=== PATIENT | male | born 1955 | race Caucasian/White ===

== ENCOUNTER → 2022-05-26 13:34 | Outpatient (REF) | payer MEDICARE, SELFPAY ==
--- NOTE | 2022-05-26 13:51 | CA_ITS ---
Transthoracic Echocardiogram Patient (Last, First, Middle): Ramsey Freeman, Gender: Male Date of : 1955 Age: 66 Procedure Date: 05/26/2022 Procedure Type: Transthoracic Echocardiogram Location: OP Height: 175.26 cm Weight: 81.65 kg BSA: 1.98 m2 Heart Rate: 66 bpm BP: 120 / 72 mmHg Neon Glass Blower: SB Referring MD: Jose Spangler MD Symptoms: RT CARDIAC VENTRICULAR DILATION Study Quality: Adequate w contrast ECG Rhythm: Sinus Conclusions: - The left ventricular systolic function is normal. The visually estimated ejection fraction is between 55-60%. - Knnf-qu-sjkbwere increase in right ventricular size. - No obvious valvular pathology seen on this study. Findings Procedure Information Contrast agent, definity, is being given per protocol without apparent complications. Left Ventricle Normal left ventricular cavity size. There is normal left ventricular wall thickness. The left ventricular systolic function is normal. The visually estimated ejection fraction is between 55-60%. There is no evidence of regional wall motion abnormalities. Vwom-yz-wifaiikw focal hypertrophy of the basal septum. Possible grade 2 diastolic dysfunction, but does not satisfy all parameters. Right Ventricle There is normal right ventricular systolic function. Kqvd-ku-flpknwyr increase in right ventricular size; RV basal diameter 4.5cm. Atria Both atria are normal in size. Aortic Valve There is a normal trileaflet aortic valve. There is mild calcification of the aortic valve. There is no aortic valve stenosis. There is trace (trivial) aortic valve regurgitation. Mitral Valve The mitral valve appears normal. There is no mitral valve regurgitation. There is no mitral valve stenosis. Pulmonic Valve The pulmonic valve is likely normal. Tricuspid Valve There is mild tricuspid valve regurgitation. Top-normal pulmonary artery systolic pressure. Great Vessels The aortic annulus, sinuses of valsalva, and asc aorta are normal in size. Venous The inferior vena cava is normal in size and collapses greater than 50% with inspiration. Pericardium/Pleural There is no evidence of pericardial effusion. Prior Study Comparison No prior study available for comparison. Recommendations, Care & Conclusions No obvious valvular pathology seen on this study. Measurements 2D Linear Measurements IVSd: 0.46 0.6-0.9/0.6-1.0 cm LVIDd: 5.55 3.9-5.3/4.2-5.9 cm LVIDd Index: 2.80 2.4-3.2/2.2-3.1 cm/m2 LVIDs: 3.57 2.0-3.6 cm LVPWd: 0.61 0.7-1.1 cm LA Diam: 4.30 2.7-3.8/3.0-4.0 cm LAIDs Index: 2.17 1.5-2.3 cm/m2 LV Mass: 123.52 67-162/88-224 g LV Mass Index: 62.38 43-95/49-115 g/m2 LVOT Diam: 2.50 3.0+(-)1.3 cm 2D Systolic Function EF 4C: 71.40 >55% EF 2C: 51.80 >55% EF BiP: 63.70 >55% Mitral Valve MV Pk E: 1.05 MV PK A: 0.88 MV Decel Time: 206.00 E/A: 1.20 E'Lateral: 8.49 E'Medial: 5.66 E/E' Med: 18.60 E/E' Lat: 12.40 PHT: 60.00 MVA PHT: 3.67 Decel Kenton: 5.12 Aortic Valve AoV Pk Gigi: 1.38 AoV Pk Grad: 8.00 MARLO: 4.90 LVOT LVOT Pk Gigi: 1.40 LVOT Mn Gigi: 0.97 LVOT VTI: 0.30 LVOT Pk Grad: 8.00 LVOT Mn Grad: 4.00 LVOT Diam: 2.50 LVOT Area: 4.91 Diastolic Function MV Pk E: 1.05 MV Pk A: 0.88 E/A: 1.20 E'Medial: 5.66 E/E' Med: 18.60 E' Laterial: 8.49 E/E' Lat: 12.40 Right Ventricle TAPSE (mm): 24.40 TVS' Gigi: 15.50 Tricuspid Valve TR Pk Gigi: 2.81 TR Pk Grad: 32.00 RA Press: 3.00 RVSP: 35.00 Great Vessels Aorta Sinus of Valsalva: 3.70 2.0-3.5 cm Ao Asc: 3.50 2.1-3.4 cm Pulmonary Veins Pulm Vein S/D 1.80 Pulmonary Valve PV Pk Gigi: 0.83 Peak PV Grad: 3.00 Updated in Other Vendor System with Status of Final Abdiel Boston MD electronically signed on 05/26/2022 3:58:51 PM with status of Final
== END ==
LOC: HO.CARD 13:34
PROVIDERS: PCP Internal Medicine; Visit Provider Internal Medicine
DX: I51.7 Cardiomegaly (principal)
CPT/HCPCS: 93306; Q9957

== ENCOUNTER → 2023-04-21 08:12 | Outpatient (REF) | payer MEDICARE, SELFPAY ==
--- NOTE | 2023-04-21 08:16 | CA_ITS ---
Acquisition Time: 2023-04-21 08:24:51 Total Exercise Time: 00:09:54 Test Indications: CP Medications: AMLODIPINE ELIQUIS HYDROXYZINE ALBUTEROL Protocol: KADE Max HR: 146 BPM 95% of Pred: 153 BPM Max BP: 188/070 mmHG Max Work Load: 11.5 METS Exercise stress test exercise 9 min 54 sec of Kade protocol 95% MPHR, without anginal symptoms, with isolated PVCs, with normotensive response to exercise, without EKG changes. Test reviewed with Dr. Rowe Referred By: Jose Spangler Overread By: Olivia Schofield
== END ==
LOC: HO.CARD 08:12
PROVIDERS: PCP Internal Medicine; Visit Provider Internal Medicine
DX: R07.89 Other chest pain (principal)
CPT/HCPCS: 93017

== ENCOUNTER → 2023-04-21 08:16 | Outpatient (BNV) | payer MEDICARE, SELFPAY | PROVIDERS: PCP Internal Medicine; Visit Provider Nurse Practitioner | DX: R07.9 Chest pain, unspecified (principal) | CPT/HCPCS: 93016; 93018 ==

== ENCOUNTER 2024-06-01 11:11 | Outpatient (REF) | payer MEDICARE, SELFPAY ==
[2024-06-01 13:38] LABS: Mean Corpuscular HGB Conc 34.1 g/dl (31.0-36.0); Mean Corpuscular Hemoglobin 30.2 pg (27.0-33.0); Mean Corpuscular Volume 88.5 fL (80.0-98.0); Mean Platelet Volume 9.9 fL (9.4-12.4); Platelet Count 252 X10*3/uL (160-400); Red Blood Count 4.97 X10*6/uL (4.60-5.80); White Blood Count 4.6 X10*3/uL (4.8-10.8)
[2024-06-01 13:43] LABS: Estimated Average Glucose 111 mg/dL; Hemoglobin A1C 142.5642 umol/L; Hemoglobin A1c % 5.5 % (<6.0); Total Hemoglobin (HGBA1C) 3890.7739 umol/L
[2024-06-01 14:03] LABS: Alanine Aminotransferase 27 U/L (0-40); Albumin Level 4.7 g/dL (3.5-5.0); Alkaline Phosphatase 90 U/L (39-117); Anion Gap 12 (12-20); Aspartate Amino Transferase 26 U/L (5-37); Bilirubin Total 0.5 mg/dL (0.0-1.0); Blood Urea Nitrogen 22 mg/dL (9-16); C Reactive Protein < 0.10 mg/dL (< or = 0.50); Calcium 9.4 mg/dL (8.4-10.2); Carbon Dioxide 28 mmol/L (22-29); Chloride 104 mmol/L (96-108); Cholesterol 192 mg/dL (<200); Estimated Glomerular Filt Rate > 60; Glucose Random 105 mg/dL (60-115); HDL Cholesterol 72 mg/dL (>40); LDL Cholesterol Calculated 107 mg/dL (<100); Potassium 4.7 mmol/L (3.3-5.1); Sodium 139 mmol/L (135-145); Total Protein 7.6 g/dL (6.5-8.0); Triglycerides 69 mg/dL (<150); Uric Acid 4.8 mg/dL (3.4-7.0)
[2024-06-01 14:08] LABS: Thyroid Stimulating Hormone 0.94 uIU/mL (0.32-4.0); Vitamin D 25-OH Total 62.7 ng/mL (>30)
[2024-06-01 14:18] LABS: Erythrocyte Sedimentation Rate 4 MM/HR (0-15)
[2024-06-01 14:35] LABS: Prostate Specific Antigen 3.51 ng/mL (<0.05-4.0); Vitamin B12 1035 pg/mL (200-900)
[2024-06-07 14:13] LABS: Testosterone, Total 560 ng/dL (250-1100)
== END 2024-06-01 11:12 | disposition home or self-care (01) ==
LOC: HO.HMGCLDS 11:11
PROVIDERS: PCP Internal Medicine; Visit Provider Internal Medicine
DX: I10 Essential (primary) hypertension (principal); R73.01 Impaired fasting glucose; M25.50 Pain in unspecified joint; R53.83 Other fatigue; Z12.5 Encounter for screening for malignant neoplasm of prostate
CPT/HCPCS: 36415; 80053; 80061; 82306; 82607; 83036; 84153; 84403; 84443; 84550; 85027; 85652; 86140

== ENCOUNTER 2024-06-03 09:17 | Outpatient (REF) | payer MEDICARE, SELFPAY ==
[2024-06-06 21:04] LABS: Homocysteine 7.5 umol/L (<11.4)
== END 2024-06-03 09:18 | disposition home or self-care (01) ==
LOC: HO.LAB 09:17
PROVIDERS: PCP Internal Medicine; Visit Provider Internal Medicine
DX: I10 Essential (primary) hypertension (principal)
CPT/HCPCS: 36415; 83090

== ENCOUNTER 2024-08-26 13:22 | Outpatient (REF) | payer MEDICARE, SELFPAY ==
--- NOTE | ~2024-08-26 | XR_ITS ---
CLINICAL HISTORY: LOW BACK PAIN 3 views lumbar spine Comparison: None Findings: Normal vertebral body alignment. No acute fractures or dislocation. There is mild lumbar spine levoscoliosis. There is mild osteopenia. There are small lumbar spine osteophytes. There is mild sclerosis of the lower lumbar spine facets. IMPRESSION: Multilevel spondylosis no acute fractures This document has been electronically signed by: Nelson Tapia MD on 08/27/2024 09:01:29
--- OUTSIDE RECORDS SUMMARY | 2024-08-26 14:56 | XMS_ITS | Continuity of Care Document ---
Author Organization MD - [facility], [facility] Address [address] [place] [address] Assessment No assessment recorded. Plan of Treatment Reminders Order Date Submit Date Provider Last Modified By Organization Details Last Modified Time Details Appointments FOLLOW UP 2024 09:00A M ADRIANNA MELGOZA Not available Not available Not available FOLLOW UP 2024 10:00A M ADRIANNA MELGOZA Not available Not available Not available Lab None recorded. Referral None recorded. Procedures None recorded. Surgeries None recorded. Imaging XR, lumbosacr al spine, 2 or 3 view 2024 025 [email or web address] [facility] Central Scheduling, [address] [facility], [place], [address], 08/26/2024 09:35:21 Medication Orders None recorded. Patient TargetsNo targets recorded. Patient InstructionsNo instructions recorded. Reason for Referral None Reported. Problems Name Problem SNOMED Code Status Onset Date Resolution Date Notes Provider Name and Address Organization Details Recorded Time Gastroes ophageal reflux disease 639056283 Active 2019 Not Available [facility] 3 14:41:37 Exposure to mold Active 2019 Not Available [facility] 3 14:41:37 Right cardiac ventricu lar dilatati on 258410735 Active 2021 Not Available [facility] 3 14:41:37 Right ventricu lar abnormal ity 813774274 Active 2021 Not Available [facility] 3 14:41:37 Asthma 650994080 Active 2021 Not Available [facility] 3 14:41:37 Obstruct brianna sleep apnea syndrome 60002548 Active 2022 Not Available [facility] 3 14:41:37 Gastroes ophageal reflux disease without esophagi tis 715479698 Active 2022 Jose Spangler, DO [address] [place] [address], [phone], [facility] 3 16:48:40 Atypical chest pain 849658524 Active 2022 Jose Spangler, DO [address] [place] [address], [phone], [facility] 3 16:52:13 Acute bronchit is 58254599 Active 2023 ADRIANNA MELGOZA [address] [place] [address], [phone], [facility] 4 16:45:48 Multiple joint pain 66232403 Active 2023 Jose Spangler, DO [address] [place] [address], [id number], [facility] 4 10:25:41 Fatigue 46751190 Active 2023 Jose Spangler, DO [address] [place] [address], [phone], [facility] 4 10:27:08 Chronic cough 08316762 Active 2024 ADRIANNA MELGOZA [address] [place] [address], [address], [facility] 5 11:53:31 Lumbago with sciatica 188184445 Active 2024 ADRIANNA MELGOZA [address] [place] [address], [phone], [facility] 5 12:14:35 Cervical radiculo mer 91468286 Active 2024 ADRIANNA MELGOZA [address] [place] [address], [phone], [facility] 5 12:16:20 Acute low back pain 933245522 Active 2024 ADRIANNA MELGOZA [address] [place], [address], [facility] 5 09:12:49 Essliu l hyperten vikram 40571363 Active 2017 Not Available [facility] 3 14:41:37 Hypogona dism 64594656 Active 2017 Not Available [facility] 3 14:41:37 Asthma 432587356 Completed 201710/28/2017 Jose Spangler DO [address] [place], [address], [facility] 2 16:42:44 Impaired fasting glycemia 549544787 Active 2017 Not Available [facility] 3 14:41:37 Anxiety 14761526 Active 2017 Not Available [facility] 3 14:41:37 Problem Notes None recorded. Medical Equipment None Reported. Allergies Allergen ID Allergen Name Allergen Category Reaction Reaction Severity Criticality Documentation Date Start Date Code Code System Note Provider Name and Address Organization Details Recorded Time 1354 Substance with sulfonami de structure and antibacte rial mechanism of action (substanc e) medicatio n Not available Not available Not available 10/28/2017 34808 [id number] [facility]ED [facility] 8 08:27:11 Medications Name Sig Start Date Stop Date Status Note LastModified by Organization Details LastModified Time amoxicillin 500 mg capsule 05/12 completed Not Available Not Available Not Available trazodone 50 mg tablet TAKE 2 TABLETS BY MOUTH NIGHTLY 05/28 completed Not Available Not Available Not Available amlodipine 2.5 mg tablet Take 2 tablet(s) every day by oral route. 05/12 completed Not Available Not Available Not Available amlodipine 5 mg tablet TAKE 2 TABLETS BY MOUTH ONCE DAILY 05/28 completed Not Available Not Available Not Available tramadol 50 mg tablet take 1-2 tid prn back pain 05/12 completed Not Available Not Available Not Available lorazepam 0.5 mg tablet TAKE 1 TABLET BY MOUTH EVERY 8 HOURS NEEDED FOR ANXIETY (FOR PANIC ATTACKS) FOR UP TO 10 DAYS 05/12 completed Not Available Not Available Not Available trazodone 100 mg tablet Take 1 tablet every day by oral route for 90 days. active Not Available Not Available No t Available amlodipine 10 mg tablet Take 1 tablet every day by oral route for 90 days. active Not Available Not Available No t Available benzonatate 100 mg capsule TAKE 1 CAPSULE BY MOUTH THREE TIMES A DAY NEEDED FOR 30 DAYS 08/26 completed Not Available Not Available Not Available losartan 25 mg tablet take 1 tablet by mouth once a day 07/12 completed Not Available Not Available Not Available hydrochloro thiazide 12.5 mg capsule 1 po qd 10/27 completed Not Available Not Available Not Available fluoxetine 10 mg capsule TAKE 2 CAPSULES BY MOUTH DAILY 05/12 completed Not Available Not Available Not Available montelukast 10 mg tablet TAKE 1 TABLET BY MOUTH ONCE DAILY 05/12 completed Not Available Not Available Not Available hydroxyzine HCl 25 mg tablet Take 2 tablets twice a day by oral route for 30 days. active Not Available Not Available No t Available codeine 10 mg-guaifene sin 100 mg/5 mL oral liquid TAKE 10 ML BY MOUTH EVERY 4 HOURS NEEDED FOR 7 DAYS 07/29 completed Not Available Not Available Not Available lorazepam 1 mg tablet take 1 tablet three times a day if needed 10/27 completed Not Available Not Available Not Available zolpidem 10 mg tablet TAKE 1 TABLET BY MOUTH NIGHTLY NEEDED FOR SLEEP 05/12 completed Not Available Not Available Not Available methylpredn isolone 4 mg tablets in a dose pack TAKE 6 TABLETS ON DAY 1 DIRECTED ON PACKAGE AND DECREASE BY 1 TAB EACH DAY FOR A TOTAL OF 6 DAYS 08/26 completed Not Available Not Available Not Available albuterol sulfate HFA 90 mcg/actuati on aerosol inhaler INHALE 2 PUFFS INTO THE LUNGS EVERY 4 HOURS NEEDED FOR 30 DAYS 04/13 completed Not Available Not Available Not Available cholestyram ine (with sugar) 4 gram oral powder 04/28 completed Not Available Not Available Not Available Boostrix Tdap 2.5 Lf unit-8 mcg-5 Lf/0.5 mL intramuscul ar syringe 07/12 completed Not Available Not Available Not Available hydrochloro thiazide 12.5 mg tablet Take one tablet daily. 07/12 completed Not Available Not Available Not Available Eliquis 5 mg tablet TAKE 1 TABLET BY MOUTH TWICE A DAY active Not Available Not Available No t Available Shingrix (PF) 50 mcg/0.5 mL intramuscul ar suspension, kit 07/12 completed Not Available Not Available Not Available Fluzone Quad (PF) 60 mcg (15 mcg x 4)/0.5 mL IM suspension 05/04 completed Not Available Not Available Not Available Fluzone Quad (PF) 60 mcg (15 mcg x 4)/0.5 mL IM syringe 04/13 completed Not Available Not Available Not Available albuterol 90 mcg-budeson sharon 80 mcg/actuati on HFA aerosol inhaler Inhale by inhalatio n route. 05/15 completed Not Available Not Available Not Available Vitals Date Recorded Body height Body mass index (BMI) Body weight Heart rate Oxygen saturation Oxygen saturation in Arterial blood by Pulse oximetry Systolic blood pressure Diastolic blood pressure Provider Name and Address Organization Details Last Updated DateTime 5 171.45 cm 30.2 kg/m2 06126.1 g 59 /min 99 % 99 % 142 mm[Hg] 82 mm[Hg] [facility] 5 08:59:05 Social History Question Answer Notes LastModified by Organizat ion Details LastModified Time Tobacco Smoking Status Never Smoker Not Available [facility] 04/17/2020 03:36:23 What Was The Date Of Your Most Recent Tobacco Screening? 08/26/2024 [email or web address] Information not available 08/26/2024 Do You Or Have You Ever Used Any Other Forms Of Tobacco Or Nicotine? No Information not available 08/27/2022 Sex: Male Functional Status None recorded. Mental Status None recorded. Family History Nothing Reported. Medical History Condition Response Coronary Artery Disease N Gout N Other N Kidney Stones N Blood Diseases N Blood Transfusion N Breast Cancer N COPD N Depression N Lung Disease N Defects or Inherited Disease N Anxiety Disorder N Muscle, Joint, or Bone Problems N Obesity N Vision or Eye Problems N Arthritis N Polyps N Infertility N Mental Disorder N Cancer N Varicosities N Stroke N Endometriosis N Bladder or Kidney Problems N High Cholesterol N Liver Disease N Headaches N Fibromyalgia N Kidney Disease N Allergies/Hayfever N Heart Problems N Hospitalizations N Thyroid Problems N GI Problems N Eating Disorder N Skin Problems N Anemia N MRSA exposure N Constipation N Mental Illness N Diabetes N Ovarian Cancer N Seizures/Epilepsy N Tuberculosis N Congestive Heart Failure (CHF) N Eczema N Abuse/Domestic Violence N Diverticulitis N Asthma N Reflux/GERD N Hepatitis N Heart Disease N Pulmonary Embolism N Hypertension N Chicken Pox N Autism Spectrum Disorder (ASD) N Osteoporosis N Immunizations Vaccine Type Date Status Note Provider Nam e and Address Organization Details Recorded Time influenza, unspecified formulation 2 completed Not Available [facility] 02/26/2023 14:41:37 COVID-19, mRNA, LNP-S, bivalent, PF, 50 mcg/0.5 mL or 25mcg/0.25 mL dose 2 completed Not Available [facility] 02/26/2023 14:41:37 Influenza, split virus, quadrivalent, preservative 9 completed Not Available [facility] 02/26/2023 14:41:37 Tdap 9 completed Not Available [facility] 02/26/2023 14:41:37 zoster, unspecified formulation 9 completed Not Available [facility] 02/26/2023 14:41:37 zoster, unspecified formulation 0 completed Not Available [facility] 02/26/2023 14:41:37 Influenza, split virus, quadrivalent, preservative 0 completed Not Available [facility] 02/26/2023 14:41:37 Past Encounters Encounter ID Performer Location Encounter Start Date Encounter Closed Date Diagnosis/Indication Diagnosis SNOMED-CT Code Diagnosis ICD10 Code Diagnosis Note [id number] AD[facility]AN[facility] [address] [facility],[place] [address] 07/29/2024 08:53:36 07/29/2024 09:40:41 Chronic cough 78526827 R05.3 Asthma 318819298 J45.30 does not want an inhaler Fatigue 24357217 R53.83 labs normal, declines f/u pulm testing or f/u echo [id number] [facility] [address] [facility],[place] [address] 08/16/2024 08:29:01 08/16/2024 14:13:29 Lumbago with sciatica 934866356 M54.42 declined prednisone but agreed to medrol Cervical radiculopathy 70189718 M54.12 [id number] ADRIANNA MELGOZA [facility] [address] [facility], [place] [address] 08/26/2024 08:49:19 08/26/2024 09:35:21 Acute low back pain 769047625 M54.51 start with XR Lumbago with sciatica 20 1292366 M54.42 declined meds, will start with XR Health Concerns Section Related Observation LastModified by Organization Detai ls LastModified Time None Recorded Concern Status LastModified by Organization Details LastModified Time None Recorded Payers Encounter Date Sequence Insurance Name Policy Number Policy Chaney Covered Member ID Chaney Member ID Guarantor Name 08/26/2024 1 [facility]: MEDICARE PPO BLUE (MEDICARE REPLACEMENT PPO) [id number] Ramsey Freeman [id number] Ramsey Freeman Notes Date Note Type Note Provider Name and Address Organization Details Recorded Time 5 text/htm l f/u 1 mos the patient reports he is still having pain, joint pain, back painthe patient also has his cough and chest tightness which seemed to have improved since our previous visitdenies numbness or tingling, denies foot drop, denies weakness the patient reports that he has a long hx of low back pain, was usually treated with steroids and core strengtheningthe patient reports he twists the wrong way puts pressure on the back and feels it shooting down his leg the patient reports that he isn't experiencing normal pain that he has had able to walk, the patient is very activethe patient reports that he is using THC for the pain which helpsmedrol wasn't effective at all suggested repeat imaging since this is very different from normal presentationpossibly stronger steroid ADRIANNA MELGOZA [address] [place], [address], [facility] 08/26/2024 09:13:54
--- OUTSIDE RECORDS SUMMARY | 2024-08-26 14:56 | XMS_ITS | Continuity of Care Document ---
Author Organization [facility] Address [address] [place] [address] Assessment Encounter Date Assessment Date Assessment LastModified by Organization Details LastModified Time 08/16/2024 08/16/2024 Patient agreed and verbally consents to this audio and video Telehealth appt via a secure platform [email or web address] Not available 08/16/2024 12:16:51 Plan of Treatment Reminders Order Date Submit Date Provider Last Modified By Organization Details Last Modified Time Details Appointments FOLLOW UP 15 2024 09:00A M ADRIANNA MELGOZA Not available Not available Not available FOLLOW UP 15 2024 10:00A M ADRIANNA MELGOZA Not available Not available Not available Lab None recorded . Referral None recorded . Procedures None recorded . Surgeries None recorded . Imaging None recorded . Medication Orders Medrol (Marciano) 4 mg tablets in a dose pack [address] [id number], [address] [place], [address], 08/26/2024 08:57:54 Patient TargetsNo targets recorded. Patient InstructionsNo instructions recorded. Reason for Referral None Reported. Problems Name Problem SNOMED Code Status Onset Date Resolution Date Notes Provider Name and Address Organization Details Recorded Time Gastroes ophageal reflux disease 392095334 Active 2019 Not Available [facility] 3 14:41:37 Exposure to mold Active 2019 Not Available [facility] 3 14:41:37 Right cardiac ventricu lar dilatati on 218046833 Active 2021 Not Available [facility] 3 14:41:37 Right ventricu lar abnormal ity 766574893 Active 2021 Not Available [facility] 3 14:41:37 Asthma 683269370 Active 2021 Not Available [facility] 3 14:41:37 Obstruct brianna sleep apnea syndrome 66109012 Active 2022 Not Available [facility] 3 14:41:37 Gastroes ophageal reflux disease without esophagi tis 365579181 Active 2022 Jose Spangler, DO [address] [place] [address], [id number], [facility] 3 16:48:40 Atypical chest pain 340503683 Active 2022 Jose Spangler DO [address] [place] [address], [address], [facility] 3 16:52:13 Acute bronchit is 72379653 Active 2023 ADRIANNA MELGOZA [address] [place] [address], [address], [facility] 4 16:45:48 Multiple joint pain 23233646 Active 2023 Jose Spangler, DO [address] [place] [address], [address], [facility] 4 10:25:41 Fatigue 01082528 Active 2023 Jose Spangler DO [address] [place] [address], [address], [facility] 4 10:27:08 Chronic cough 69057041 Active 2024 ADRIANNA MELGOZA [address] [place] [address], [address], [facility] 5 11:53:31 Lumbago with sciatica 199285836 Active 2024 ADRIANNA MELGOZA [address] [place] [address], [address], [facility] 5 12:14:35 Cervical radiculo mer 18626022 Active 2024 ADRIANNA MELGOZA [address] [place], [address], [facility] 5 12:16:20 Acute low back pain 828975219 Active 2024 ADRIANNA MELGOZA [address] [place], [address], [facility] 5 09:12:49 [facility] hyperten vikram 85438762 Active 2017 Not Available [facility] 3 14:41:37 Hypogona dism 04829187 Active 2017 Not Available [facility] 3 14:41:37 Asthma 493039101 Completed 201710/28/2017 Jose Spangler, [address] [place], [address], [facility] 2 16:42:44 Impaired fasting glycemia 826203164 Active 2017 Not Available [facility] 3 14:41:37 Anxiety 45896957 Active 2017 Not Available [facility] 3 14:41:37 Problem Notes None recorded. Medical Equipment None Reported. Allergies Allergen ID Allergen Name Allergen Category Reaction Reaction Severity Criticality Documentation Date Start Date Code Code System Note Provider Name and Address Organization Details Recorded Time 1354 Substance with sulfonami de structure and antibacte rial mechanism of action (substanc e) medicatio n Not available Not available Not available 10/28/2017 78469 [id number] [facility] 08:27:11 Medications Name [...] Not Available Not Available Not Available Vitals None Recorded Social History Question Answer Notes LastModified by Organizat ion Details LastModified Time Tobacco Smoking Status Never Smoker Not Available [facility] 04/17/2020 03:36:23 What Was The Date [...] N Blood Transfusion N Breast Cancer N Lung Disease N Depression N COPD N Defects or Inherited Disease N Anxiety Disorder N Muscle, Joint, or Bone Problems N Obesity N Vision or Eye Problems N Arthritis N Infertility N Polyps N Mental Disorder N Cancer N Stroke N Varicosities N Endometriosis N Bladder or Kidney Problems N High Cholesterol N Liver Disease N Fibromyalgia N Headaches N Kidney Disease N Allergies/Hayfever N Heart [...] influenza, unspecified formulation 2 completed Not Available [facility] 02/26/2023 14:41:37 COVID-19, mRNA, LNP-S, bivalent, PF, 50 mcg/0.5 mL or 25mcg/0.25 mL dose 2 completed Not Available [facility] 02/26/2023 14:41:37 Influenza, split virus, quadrivalent, preservative 9 completed Not Available [facility] 02/26/2023 14:41:37 Tdap 9 completed Not Available [facility] 02/26/2023 14:41:37 zoster, unspecified formulation 9 completed Not Available [facility] 02/26/2023 14:41:37 zoster, unspecified formulation 0 completed Not Available [facility] 02/26/2023 14:41:37 Influenza, split virus, quadrivalent, preservative 0 completed Not Available [facility] 02/26/2023 14:41:37 Past Encounters Encounter ID Performer Location Encounter Start Date Encounter Closed Date Diagnosis/Indication Diagnosis SNOMED-CT Code Diagnosis ICD10 Code Diagnosis Note [id number] AD[facility]ANNA MELGO[facility] [address],[place] [address] 07/29/2024 08:53:36 07/29/2024 09:40:41 Chronic cough 94003589 R05.3 Asthma 507727174 J45.30 does not want an inhaler Fatigue 32925688 R53.83 labs normal, declines f/u pulm testing or f/u echo [id number] ADRIANNA MELGOZA [facility] [address],[place] [address] 08/16/2024 08:29:01 08/16/2024 14:13:29 Lumbago with sciatica 541111320 M54.42 declined prednisone but agreed to medrol Cervical radiculopathy 21078843 M54.12 Health Concerns Section Related Observation LastModified by Organization Detai ls LastModified Time None Recorded Concern Status LastModified by Organization Details LastModified Time None Recorded Payers Encounter Date Sequence Insurance Name Policy Number Policy Chaney Covered Member ID Chaney Member ID Guarantor Name 08/16/2024 1 [facility]: MEDICARE PPO BLUE (MEDICARE REPLACEMENT PPO) [id number] Ramsey Kathygabriel [id number] Ramsey Kathygabriel Notes Date Note Type Note Provider Name a nd Address Organization Details Recorded Time 08/16/2024 text/html c/o sciatica The patient is participating in this appointment via telemedicine communication with a phone call/video calling service ([employer])The patient consents to use of these platforms in place of an in-person appointment due to either sick symptoms the patient is presenting with or current office closure due to COVID exposure in order to keep our office staff and patients safe the patient reports that he has a hx of disc herniation, has had issues with sciatica on and off since his 30s-40sthe patient reports that he is having a hard time bending over with radiation down the legs, L>R into his buttock to knee the patient is having left arm pain, no chest pain, but radiation from the neck probably no other symptoms agreed to medrol dose pakdeclined prednisone ADRIANNA MELGOZA [address], [place], [address], [facility] 08/16/2024 12:22:58
--- OUTSIDE RECORDS SUMMARY | 2024-08-26 14:56 | XMS_ITS | Data Portability ---
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 MUST MEET 2 OUT OF 3 ELEMENTS: PROBLEMS, DATA OR RISK ELEMENT 1: PROBLEMS ADDRESSED 1 OR MORE CHRONIC ILLNESS WITH EXACERBATION OR 2 OR MORE STABLE CHRONIC ILLNESSES OR 1 UNDIAGNOSED NEW PROBLEM OR 1 ACUTE ILLNESS W/SYMPTOMS OR 1 ACUTE COMPLICATED INJURY ELEMENT 2: DATA MUST MEET 1 OF 3 CATEGORIES CATEGORY 1: REVIEW OF PRIOR EXTERNAL NOTES, REVIEW OF RESULTS, ORDERING OF EACH TEST, ASSESSMENT REQUIRING INDEPENDENT HISTORIAN OR CATEGORY 2: INDEPENDENT INTERPRETATION OF TESTS BY ANOTHER PHYSICIAN OR SPECIALIST OR CATEGORY 3: DISCUSSION OF MGT OR TEST INTERPRETATION W/EXTERNAL PHYSICIAN OR SPECIALIST ELEMENT 3: RISK RISK OF COMPLICATIONS AND/OR MORBIDITY OR MORTALITY OF PATIENT MANAGEMENT PROVIDER MUST THOROUGHLY DOCUMENT EACH ELEMENT THAT IS COVERED Not available 06/01/2024 10:23:23 08/16/2024 08/16/2024 Patient agreed and verbally consents [...] Not available Not available Not available Lab HbA1c (hemoglob in A1c), blood 2023 024 [facility], [address] [place] [address], [place], [address], 06/10/2024 09:05:39 C-reactiv e protein, quantitat brianna, serum or plasma 2023 [facility], [address] [place] [address], [address], 06/01/2024 10:34:31 uric acid, serum or plasma 2023 [facility], [address] [place] [address], [address], 06/01/2024 10:34:31 erythrocy te sedimenta tion rate by westergre n method 2023 [facility], [address] [place] [address], [address], 06/01/2024 10:34:31 vitamin D, 25-hydrox y, total, serum 2023 [facility], [address] [place] [address], [address], 06/01/2024 10:34:31 CMP, serum or plasma 2023 [facility], [address] [place] [address], [address], 06/01/2024 10:34:32 CBC 2023 [facility], [address] [place] [address], [address], 06/01/2024 10:34:32 homocyste ine, serum or plasma 2023 [facility], [address] [place] [address], [address], 06/07/2024 11:15:09 lipid panel, blood 2023 [facility], [address] [place] [address], [address], 06/10/2024 09:05:39 PSA, serum or plasma 2023 024 [facility], [address] [place] [address], [address], 06/01/2024 10:34:32 TSH, serum or plasma 2023 024 [facility], [address] [place] [address], [address], 06/01/2024 10:34:32 testoster one, total, serum 2023 [facility], [address] [place] [address], [address], 06/09/2024 07:55:52 vitamin B12, serum 2023 024 [facility], [address] [place] [address], [address], 06/01/2024 10:34:31 Referral None recorded. Procedures None recorded. Surgeries None recorded. Imaging XR, lumbosacr al spine, 2 or 3 view 2024 [facility], [address] [place] [address], [address], 08/26/2024 09:35:21 Medication Orders Medrol (Marciano) 4 mg tablets in a dose pack 2024 [id number], [address] [place], [address], 08/26/2024 08:57:54 codeine 10 mg-guaife nesin 100 mg/5 mL oral liquid 2024 025 [id number], [address] [place], [address], 07/29/2024 08:56:24 benzonata te 100 mg capsule 2024 025 [id number], [address] [place], [address], 08/26/2024 08:57:47 Patient TargetsNo targets recorded. Patient Instructions Encounter Date Encounter Id Patient Instructions Last Modified By Organization Details Last Modified Time 06/01/2024 [id number] pulse oximetry* Not available 06/01/2024 10:33:11 Reason for Referral None Reported. Results Created Date Observation Date Name Description Value Unit Range Abnormal Flag Note LastModifiedBy Organization Detail LastModifiedTime 06/01/20 24 06/01/2024 pulse oxime try* Result 98% Not Available [facility] [address] [facility] [address], [place], [address], 06/01/2024 08:17:34 Result Notes None recorded. Problems Name Problem SNOMED Code Status Onset Date Resolution Date Notes Provider Name and Address Organization Details Recorded Time Gastroes ophageal reflux disease 543039676 Active 2019 Not Available [facility] 3 14:41:37 Exposure to mold Active 2019 Not Available [facility] 3 14:41:37 Right cardiac ventricu lar dilatati on 150844149 Active 2021 Not Available [facility] 3 14:41:37 Right ventricu lar abnormal ity 767803193 Active 2021 Not Available [facility] 3 14:41:37 Asthma 711621422 Active 2021 Not Available [facility] 3 14:41:37 Obstruct brianna sleep apnea syndrome 43639934 Active 2022 Not Available [facility] 3 14:41:37 Gastroes ophageal reflux disease without esophagi tis 604955838 Active 2022 Jose Spangler, [address] [facility], [place], [address], [facility] 3 16:48:40 Atypical chest pain 479639252 Active 2022 Jose Spangler, DO [address] [place] [address], [address], [facility] 3 16:52:13 Acute bronchit is 54139919 Active 2023 ADRIANNA MELGOZA [address] [place] [address], [address], [facility] 4 16:45:48 Multiple joint pain 42840139 Active 2023 Jose Spangler, DO [address] [place] [address], [address], [facility] 4 10:25:41 Fatigue 56956599 Active 2023 Jose Spangler, DO [address] [place] [address], [address], [facility] 4 10:27:08 Chronic cough 32306781 Active 2024 ADRIANNA MELGOZA [address] [place] [address], [address], [facility] 5 11:53:31 Lumbago with sciatica 602492620 Active 2024 ADRIANNA MELGOZA [address] [place] [address], [address], [facility] 5 12:14:35 Cervical radiculo mer 22273697 Active 2024 ADRIANNA MELGOZA [address] [place] [address], [address], [facility] 5 12:16:20 Acute low back pain 637105736 Active 2024 ADRIANNA MELGOZA [address] [place] [address], [address], [facility] 5 09:12:49 [facility] hyperten vikram 58098454 Active 2017 Not Available [facility] 3 14:41:37 Hypogona dism 86724536 Active 2017 Not Available [facility] 3 14:41:37 Asthma 331924559 Completed 201710/28/2017 Jose Spangler, DO [address] [facility], [place], [address], [facility] 2 16:42:44 Impaired fasting glycemia 633578901 Active 2017 Not Available [facility] 3 14:41:37 Anxiety 16261341 Active 2017 Not Available [facility] 3 14:41:37 Problem Notes None recorded. Medical Equipment None Reported. Allergies Allergen ID Allergen Name Allergen Category Reaction Reaction Severity Criticality Documentation Date Start Date Code Code System Note Provider Name and Address Organization Details Recorded Time 1354 Substance with sulfonami de structure and antibacte rial mechanism of action (substanc e) medicatio n Not available Not available Not available 10/28/2017 77592 8003 SNOMED Mindy Brown [facility] 8 08:27:11 Medications Name Sig [...] and Address Organization Details Last Updated DateTime 4 171.45 cm 30.6 kg/m2 97923.2 9 g 69 /min 98 % 98 % 140 mm[Hg] 82 mm[Hg] Zaid Gallo [facility] 4 10:13:21 Date Recorded Body height Body mass index (BMI) Body weight Heart rate Oxygen saturation Oxygen saturation in Arterial blood by Pulse oximetry Systolic blood pressure Diastolic blood pressure Provider Name and Address Organization Details Last Updated DateTime 5 171.45 cm 30.4 kg/m2 29064.7 g 63 /min 98 % 98 % 128 mm[Hg] 82 mm[Hg] Sonal Aragon [facility] 5 09:01:20 Date Recorded Body height Body mass index (BMI) Body weight Heart rate Oxygen saturation Oxygen saturation in Arterial blood by Pulse oximetry Systolic blood pressure Diastolic blood pressure Provider Name and Address Organization Details Last Updated DateTime 5 171.45 cm 30.2 kg/m2 35100.1 g 59 /min 99 % 99 % 142 mm[Hg] 82 mm[Hg] Zaid Gallo [facility] 5 08:59:05 Social History Question Answer Notes LastModified by Organizat ion Details LastModified Time Tobacco Smoking Status Never Smoker Not Available [facility] 04/17/2020 03:36:23 What Was The Date Of Your Most Recent Tobacco Screening? 08/26/2024 [email or web address] Information not available 08/26/2024 Do You Or Have You Ever Used Any Other Forms Of Tobacco Or Nicotine? No Information not available 08/27/2022 Sex: Male Functional Status None recorded. Mental Status None recorded. Family History Nothing Reported. Medical History Condition Response Coronary Artery Disease N Other N Gout N Blood Diseases N Kidney Stones N Breast Cancer N Blood Transfusion N Lung Disease N Depression N COPD [...] influenza, unspecified formulation 2 completed Not Available [facility] 02/26/2023 14:41:37 COVID-19, mRNA, LNP-S, bivalent, PF, 50 mcg/0.5 mL or 25mcg/0.25 mL dose 2 completed Not Available [facility] 02/26/2023 14:41:37 Influenza, split virus, quadrivalent, preservative 9 completed Not Available [facility] 02/26/2023 14:41:37 Tdap 9 completed Not Available [facility] 02/26/2023 14:41:37 zoster, unspecified formulation 9 completed Not Available [facility] 02/26/2023 14:41:37 zoster, unspecified formulation 0 completed Not Available [facility] 02/26/2023 14:41:37 Influenza, split virus, quadrivalent, preservative 0 completed Not Available [facility] 02/26/2023 14:41:37 Past Encounters Encounter ID Performer Location Encounter Start Date Encounter Closed Date Diagnosis/Indication Diagnosis SNOMED-CT Code Diagnosis ICD10 Code Diagnosis Note [id number] DO [facility] [address] [facility],[place] [address] 10/28/2017 12:02:53 10/28/2017 16:51:52 Essential hypertension 92059328 I10 Impaired f asting glycemia 827697792 R73.01 [id number] Jose Spangler [facility] [address] [facility], [place] [address] 04/28/2018 10:30:27 04/28/2018 15:45:46 Impaired fasting glycemia 633295754 R73.01 stable overall with noted lab work Hypogonadism 63501262 E2 9.1 will need to rechk testost in near future Essential hypertension 03894727 I10 bp is stable thus far taking meds without problem Jose Spangler [facility] [address] [facility], [place] [address] 10/27/2018 10:49:15 10/27/2018 11:41:43 Essential hypertension 49663227 I10 bp is stable thus far so we will be discontinu ing his meds by stopping one at a time over the next few weeks and will chk his bp at home Anxiety 21326274 F41.9 doing well and is now off the lorazepam Impaired f asting glycemia 817351326 R73.01 stable overall with noted lab work [id number] Jose Spangler [facility] [address] [facility] [address], [place] [address] 05/04/2019 10:55:07 05/04/2019 11:24:52 Impaired fasting glycemia 871013751 R73.01 stable overall with noted lab work Essential hypertension 71138927 I10 here for rechk of bp and this has been excellent without any medication s Anxiety 33392923 F41.9 doing well and is now off the lorazepam Active or passive immunization 750699852 Z23 will be getting these at his pharmacy [id number] Jose Spangler [facility] [address] [facility],[place] [address] 07/12/2019 13:39:16 07/12/2019 14:47:53 Anxiety 33548239 F41.9 Very well controlled w/o anxiety Likely this recent incident was anxiety-re lated Essential hypertension 20507199 I10 BP has been elevated since ER visit 150s systolic Will restart amlodipine 5 Hypercholesterolemia 136 60353 E78.00 Cards rec statin Pt refuses at this time and will work on diet/exerc ise Gastroesop hageal reflux disease 815373736 K21.9 symptoms have returned aagain feels is due to the stress overall Screening for malignant neoplasm of colon 513850911 Z12.11 [id number] Jose Spangler DO [facility] [address] [facility], [place] [address] 04/13/2020 10:14:26 04/13/2020 11:12:48 Essential hypertension 39042960 I10 bps have been better with the amlodipine Exposure to mold 2670196 276 6374623 Z77.120 with hypersensi tivity leading to respirator y distress i have asked him to remove himself and family from this household as this has become a major medical issue. latest studies have shown removal from that environmen t is the only true treatment that will work Anxiety 41717607 F41.9 Very well controlled w/o anxiety Likely this recent incident was anxiety-re lated Low back pain 969791182 M54.5 [id number] ADRIANNA MELGOZA [facility] [address] [facility], [place] [address] 05/28/2020 08:46:01 05/28/2020 15:28:17 Essential hypertension 49868615 I10 will check labs to see if new risk factors on top of age, gender, and HTN diagnosis will also see if has diabetes and hyperlipid emia too Gastroesop hageal reflux disease 479764645 K21.9 stable Fatigue 04452192 R53.83 will check these labs, related to what his integrativ e medicine doctor was doing though originally due to lyme but now thinks its related to homocystei ne and vitamin levels in the body [id number] Jose Spangler DO [facility] [address] [facility], [place] [address] 05/12/2022 15:39:14 05/12/2022 16:34:01 Right cardiac ventricular dilatation 325586875 I51.7 will follow up and get an echoultima te plan is to make sure no abnormalit ies remain History of pulmonary embolus 629569371 Z86.711 see records had a saddle embolus with resultant stunned myocardium etc and he will need a hematology work up dorothy damon but i would like to talk to dr fink Essential hypertension 41120278 I10 bps have been better with the amlodipine [id number] Jose Spangler [facility] [address] [facility],[place] [address] 05/28/2022 15:41:08 05/28/2022 16:45:58 Right ventricular abnormality 292294935 I51.89 will repeat echo im august Essential hypertension 17048252 I10 bps have been better with the amlodipine Asthma 095479485 J45.90 9 [id number] Jose Spangler [facility] [address] [facility],[place] [address] 08/27/2022 14:24:08 08/27/2022 17:07:11 Essential hypertension 06857666 I10 bp may be borderline pt will monitior at home more closely Advance care planning 71 1414113 Z71.89 utd Screening for malignant neoplasm of colon 984275143 Z12.11 offered and will do the Obstructiv e sleep apnea syndrome 74774327 G47.33 pt reluctant to do [id number] Jose Spangler [facility] [address] [facility] [place] [address] 10/31/2022 14:48:14 10/31/2022 15:55:38 Essential hypertension 09479865 I10 bp may be borderline pt will monitior at home more closely Obstructiv e sleep apnea syndrome 45256551 G47.33 has an appt in december but needs to do home study [id number] Jose Spangler [facility] [address] [facility] [address] [address] 04/13/2023 16:11:04 04/14/2023 08:13:12 Anxiety 36949383 F41.9 Very well controlled w/o anxiety Likely this recent incident was anxiety-re lated Asthma 371476754 J45.90 9 here Hypogonadism 64415036 E2 9.1 will need to rechk testost in near future Obstructiv e sleep apnea syndrome 11677980 G47.33 has an appt in decemberbut needs to do home study Essential hypertension 15845370 I10 bp may be borderline pt will monitior at home more closely Gastroesop hageal reflux disease 477935646 K21.9 symptoms have returned again feels is due to the stress overall but had a very severe episode for hours then disappeare d Atypical chest pain 1025 95893 R07.89 poss this gerd episode but need to be sure History of pulmonary embolus 999246041 Z86.711 see records had a saddle embolus with resultant stunned myocardium etc and he will need a hematology work up dorothy damon but i would like to talk to dr fink [id number] Jose Spangler, [facility] [address] [facility],[place] [address] 05/15/2023 15:22:05 05/18/2023 10:16:40 Asthma 227368409 J45.909 here and is doing ok overall Hypogonadism 15480452 E2 9.1 will need to rechk testost in near future but right now he does not wish to have any lab donewants to exercise and lose wgt first Essential hypertension 27642817 I10 bp has been doing ok no issuesdisc ussed wgt loss [facility] would like to get lab before and after [id number] Jose Spangler, [facility] [address] [facility] [address] 06/01/2024 10:06:04 06/01/2024 10:39:53 Asthma 011726847 J45.909 here and is doing ok overall Essential hypertension 25143363 I10 bp has been doing ok no issuesdisc ussed wgt loss after he has going [facility] would like to get lab before and after Gastroesop hageal reflux disease 285322707 K21.9 symptoms have returned again feels is due to the stress overall but had a very severe episode for hours then disappeare d Impaired f asting glycemia 115290691 R73.01 stable overall with noted lab work Multiple joint pain 3567 8005 M25.50 Fatigue 35887837 R53.83 [id number] ADRIANNA MELGOZA [facility] [address] [facility] [address],[place] [address] 07/13/2024 08:21:14 07/13/2024 14:31:37 Chronic cough 57495680 R05.3 [id number] ADRIANNA MELGOZA [facility] [address] [facility] [address],[place] [address] 07/29/2024 08:53:36 07/29/2024 09:40:41 Chronic cough 08432266 R05.3 Asthma 621013715 J45.30 does not want an inhaler Fatigue 87475451 R53.83 labs normal, declines f/u pulm testing or f/u echo [id number] ADRIANNA MELGOZA [facility] [address] [facility] [address], [place] [address] 08/16/2024 08:29:01 08/16/2024 14:13:29 Lumbago with sciatica 815134257 M54.42 declined prednisone but agreed to medrol Cervical radiculopathy 43516078 M54.12 [id number] ADRAINNA MELGOZA [facility] [address] [facility],[place] [address] 08/26/2024 08:49:19 08/26/2024 09:35:21 Acute low back pain 851771418 M54.51 start with XR Lumbago with sciatica 20 9638794 M54.42 declined meds, will start with XR Health Concerns Section Related Observation LastModified by Organization Detai ls LastModified Time None Recorded Concern Status LastModified by Organization Details LastModified Time None Recorded Advance Directives Directive None Recorded Payers Encounter Date Sequence Insurance Name Policy Number Policy Chaney Covered Member ID Chaney Member ID Guarantor Name 06/01/2024 1 [facility] (MEDICARE REPLACEMENT PPO) [id number] Ramsey Freeman [id number] Ramsey Freeman 07/13/2024 1 [facility] (MEDICARE REPLACEMENT PPO) [id number] Ramsey Freeman [id number] Ramsey Freeman 07/29/2024 1 [employer] PPO) [id number] Ramsey Chaveza [id number] Ramsey Freeman 08/16/2024 1 [place] PPO) [id number] Ramsey Chaveza [id number] Ramsey Freeman 08/26/2024 1 [employer] PPO) [id number] Ramsey Freeman [id number] Ramsey Freeman Notes Date Note Type Note Provider Name and Address Organization Details Recorded Time 4 text/htm l here for rechkstates doing well overall but states that he is getting aches and pains in joints and musclescomes and goes no pattern can be fine one day and hurting anotherdoes state he needs to lose weight Jose Spangler DO [address] [place], [address], [facility] 06/01/2024 10:37:06 5 text/htm l The patient is participating in this appointment via telemedicine communication with a phone call/video calling service (digitalbox)The patient consents to use of these platforms in place of an in-person appointment due to either sick symptoms the patient is presenting with or current office closure due to COVID exposure in order to keep our office staff and patients safe the patient reports this coughing has been ongoing on and off for 15 yearsreports acute onset cough and nasal congestion has hypersomia (sensitive smell)the patient reports his house is a big trigger for the patient due to certain smellsthe patient reports that chemical smells like tires, paint fumes, 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 linger for him and cause a lot of symptoms ADRIANNA MELGOZA [address] [place], [address], [facility] 07/13/2024 12:03:33 5 text/htm l c/o cough the patient has an ongoing cough, dry coughthe patient reports that ongoing fatigue as well BP is stable today, excellent will go outside, shovel, feels tired when he exerts himselfhis o2 sat according to patient is normalthe patient is not convinced he has a pulm/cardiac issuedoes not want to repeat any testing for his lungs or recheck his heart did think it was warranted to have him at least repeat an echo but pt declines the patient reports that he thinks he has a chemical sensitivity which is probable the patient reports his cough is stable, constant, but not as severe as before patient has a hx of PE and pulm edemathe patient reports that he has an echo down years ago after the fact and fu with cardio who cleared him ADRIANNA MELGOZA [address] [place], [address], [facility] 07/29/2024 09:32:29 5 text/htm l c/o sciatica The patient is participating in this appointment via telemedicine communication with a phone call/video calling service (digitalbox)The patient consents to use of these platforms [...] medrol dose pakdeclined prednisone ADRIANNA MELGOZA [address] [place], [address], [facility] 08/16/2024 12:22:58 5 text/htm l f/u 1 mos the [...] from normal presentationpossibly stronger steroid ADRIANNA MELGOZA [address] [place] [address], [place], [address], [facility] 08/26/2024 09:13:54
--- OUTSIDE RECORDS SUMMARY | 2024-08-26 14:56 | XMS_ITS | Continuity of Care Document ---
Author Organization [facility], [facility] Address [address] [place] [address] Assessment No assessment recorded. Plan of Treatment [...] . Imaging None recorded . Medication Orders None recorded . Patient TargetsNo targets recorded. Patient InstructionsNo instructions recorded. Reason for Referral None Reported. Problems Name Problem SNOMED Code Status Onset Date Resolution Date Notes Provider Name and Address Organization Details Recorded Time Gastroes ophageal reflux disease 588521587 Active 2019 Not Available [facility] 3 14:41:37 Exposure to mold Active 2019 Not Available [facility] 3 14:41:37 Right cardiac ventricu lar dilatati on 776756775 Active 2021 Not Available [facility] 3 14:41:37 Right ventricu lar abnormal ity 080186016 Active 2021 Not Available [facility] 3 14:41:37 Asthma 414168333 Active 2021 Not Available [facility] 3 14:41:37 Obstruct brianna sleep apnea syndrome 95587003 Active 2022 Not Available [facility] 3 14:41:37 Gastroes ophageal reflux disease without esophagi tis 853622205 Active 2022 Jose Spangler, DO [address] [place] [address], [id number], [facility] 3 16:48:40 Atypical chest pain 490264373 Active 2022 Jose Spangler, DO [address] [place] [address], [phone], [facility] 3 16:52:13 Acute bronchit is 78362029 Active 2023 ADRIANNA MELGOZA [address] [place] [address], [id number], [facility] 4 16:45:48 Multiple joint pain 15212987 Active 2023 Jose Spangler DO [address] [place] [address], [phone], [facility] 4 10:25:41 Fatigue 44125970 Active 2023 Jose Spangler DO [address] [place] [address], [phone], [facility] 4 10:27:08 Chronic cough 75313084 Active 2024 ADRIANNA MELGOZA [address] [place] [address], [phone], [facility] 5 11:53:31 Lumbago with sciatica 654168166 Active 2024 ADRIANNA MELGOZA [address] [place] [address], [id number], [facility] 5 12:14:35 Cervical radiculo mer 09541763 Active 2024 ADRIANNA MELGOZA [address] [place] [address], [address], [facility] 5 12:16:20 Acute low back pain 330125802 Active 2024 ADRIANNA MELGOZA [address] [place] [address], [id number], [facility] 5 09:12:49 [facility] hyperten vikram 32787491 Active 2017 Not Available [facility] 3 14:41:37 Hypogona dism 23768019 Active 2017 Not Available [facility] 3 14:41:37 Asthma 526339274 Completed 201710/28/2017 Jose Spangler, DO [address] [place], [address], [facility] 2 16:42:44 Impaired fasting glycemia 319247123 Active 2017 Not Available [facility] 3 14:41:37 Anxiety 67530094 Active 2017 Not Available [facility] 3 14:41:37 Problem Notes None recorded. Medical Equipment None Reported. Allergies Allergen ID Allergen Name Allergen Category Reaction Reaction Severity Criticality Documentation Date Start Date Code Code System Note Provider Name and Address Organization Details Recorded Time 1354 Substance with sulfonami de structure and antibacte rial mechanism of action (substanc e) medicatio n Not available Not available Not available 10/28/2017 58656 [id number] SNOMED Mindy Stephanie [facility], [facility] 8 08:27:11 Medications [...] Updated DateTime 5 171.45 cm 30.4 kg/m2 12369.7 g 63 /min 98 % 98 % 128 mm[Hg] 82 mm[Hg] Sonal Cruz [facility] 5 09:01:20 Social History Question Answer Notes LastModified by Organizat ion Details LastModified Time Tobacco Smoking Status Never Smoker Not Available [facility] 04/17/2020 03:36:23 What Was The Date Of [...] influenza, unspecified formulation 2 completed Not Available [facility] 02/26/2023 14:41:37 COVID-19, mRNA, LNP-S, bivalent, PF, 50 mcg/0.5 mL or 25mcg/0.25 mL dose 2 completed Not Available [facility] 02/26/2023 14:41:37 Influenza, split virus, quadrivalent, preservative 9 completed Not Available [facility] 02/26/2023 14:41:37 Tdap 9 completed Not Available [facility] 02/26/2023 14:41:37 zoster, unspecified formulation 9 completed Not Available [facility] 02/26/2023 14:41:37 zoster, unspecified formulation 0 completed Not Available [facility] 02/26/2023 14:41:37 Influenza, split virus, quadrivalent, preservative 0 completed Not Available [facility] 02/26/2023 14:41:37 Past Encounters Encounter ID Performer Location Encounter Start Date Encounter Closed Date Diagnosis/Indication Diagnosis SNOMED-CT Code Diagnosis ICD10 Code Diagnosis Note [id number] ARDIANNA MELGOZA [facility] [address] [facility], [place] [address] 07/13/2024 08:21:14 07/13/2024 14:31:37 Chronic cough 21553034 R05.3 [id number] ADRIANNA MELGOZA [facility] [address] [facility], [place] [address] 07/29/2024 08:53:36 07/29/2024 09:40:41 Chronic cough 05821347 R05.3 Asthma 395415986 J45.30 does not want an inhaler Fatigue 63971081 R53.83 labs normal, declines f/u pulm testing or f/u echo Health Concerns Section Related Observation LastModified by Organization Detai ls LastModified Time None Recorded Concern Status LastModified by Organization Details LastModified Time None Recorded Payers Encounter Date Sequence Insurance Name Policy Number Policy Chaney Covered Member ID Chaney Member ID Guarantor Name 07/29/2024 1 [facility] BLUE (MEDICARE REPLACEMENT PPO) [id number] Ramsey Freeman [id number] Ramsey Freeman Notes Date Note Type Note Provider Name a nd Address Organization Details Recorded Time 07/29/2024 text/html c/o cough the patient has an ongoing [...] cardio who cleared him ADRIANNA MELGOZA [address] [facility], [place], [address], [place] [facility] 07/29/2024 09:32:29
== END 2024-08-26 13:23 | disposition home or self-care (01) ==
LOC: HO.XRAY 13:22
PROVIDERS: PCP Internal Medicine; Visit Provider Physician Assistant
DX: M54.51 Vertebrogenic low back pain (principal)
CPT/HCPCS: 72100

== ENCOUNTER → 2024-08-26 13:34 | Outpatient (BNV) | payer MEDICARE, SELFPAY | PROVIDERS: PCP Internal Medicine; Visit Provider Radiology Diagnostic Radiology | DX: M47.896 Other spondylosis, lumbar region (principal); M54.50 Low back pain, unspecified | CPT/HCPCS: 72100 ==

== ENCOUNTER 2024-09-03 07:21 | Outpatient (REF) | payer MEDICARE, SELFPAY ==
--- NOTE | ~2024-09-03 | MR_ITS ---
EXAMINATION: MR LUMBAR SPINE WITHOUT CONTRAST CLINICAL INFORMATION: Worsening radiculopathy, bilaterally. History of herniation L4-5. COMPARISON: None available. TECHNIQUE: MRI of the lumbar spine was obtained using routine sequences without contrast. FINDINGS: Last rib-bearing vertebra labeled T12. Multilevel disc desiccation. Modic type II endplate changes at L4-5 and L5-S1. There is normal alignment. There is a focal 8 mm intrinsic hyperintense T1 bone lesion at T12, intraosseous hemangioma. There is a mild bone marrow STIR signal in the posterior L4 vertebra. Conus medullaris ends at pedicle of L1 with normal signal. T12-L1: No disc herniation. No neuroforamina stenosis. L1-2: No disc herniation. No neuroforamina stenosis. L2-3: Broad-based disc bulging. Facet joint and ligamentum flavum hypertrophy. No compression upon neural elements. L3-4: Broad-based disc bulging. Facet joint and ligamentum flavum hypertrophy. Reduced AP diameter of the thecal sac and bilateral neuroforamina stenosis, left more pronounced on the right side likely encroaching the exiting nerve roots. L4-5: Central/right subarticular broad-based disc herniation. Facet joint hypertrophy. Bilateral neuroforamina stenosis encroaching the exiting nerve roots. L5-S1: Left subarticular and foraminal disc herniation compressing the left S1 nerve root. Fatty atrophy of the lower lumbar muscles from L5-S1. No prevertebral compartment hematoma, mass or fluid collection. Hyperintense T2 cystic lesions in the left kidney. MR/MR lumbar spine wo con IMPRESSION: Left subarticular and foraminal broad-based disc herniation at L5-S1 compressing the left S1 nerve root. Multilevel spondylosis L2-3 to L4-5 encroaching the exiting nerve roots. Electronically signed by: Valente Devine MD 09/05/2024 08:11 AM EDT
== END 2024-09-03 07:22 | disposition home or self-care (01) ==
LOC: HO.MRI 07:21
PROVIDERS: PCP Internal Medicine; Visit Provider Physician Assistant
DX: M51.369 Other intervertebral disc degeneration, lumbar region without mention of lumbar back pain or lower extremity pain (principal); M51.27 Other intervertebral disc displacement, lumbosacral region; M47.816 Spondylosis without myelopathy or radiculopathy, lumbar region
CPT/HCPCS: 72148

== ENCOUNTER → 2024-09-03 07:30 | Outpatient (BNV) | payer MEDICARE, SELFPAY | PROVIDERS: PCP Internal Medicine; Visit Provider Radiology Diagnostic Radiology | DX: M47.816 Spondylosis without myelopathy or radiculopathy, lumbar region (principal) | CPT/HCPCS: 72148 ==

== ENCOUNTER 2024-09-23 10:14 | Outpatient (REF) | payer MEDICARE, SELFPAY ==
--- NOTE | ~2024-09-23 | MM_ITS ---
EXAMINATION: DXA BONE DENSITY AXIAL HISTORY: M85.80 TECHNIQUE: ReliSen Dual energy absorptiometry (DEXA) of the lumbar spine, total left hip, and femoral neck was performed. COMPARISON: There are no prior studies for comparison. FINDINGS: The bone mineral density of the lumbar spine is 0.883 with a T-score of -2.8, and a Z-score of -2.6. This is indicative of osteoporosis. The bone mineral density of the left total hip is 0.893 with a T-score of -1.4, and a Z-score of -0.9. This is indicative of osteopenia. The bone mineral density of the left femoral neck is 0.818 with a T-score of -1.9, and a Z-score of -0.9. This is indicative of osteopenia. FRACTURE RISK: The FRAX index suggests a risk of major osteoporotic fracture of 7.6%, and of hip fracture 1.8%. MM/XR DEXA axial skeleton IMPRESSION: Based on bone mineral density, and according to World Health Organization (WHO) criteria, the diagnosis is consistent with osteoporosis. All bone density values are in grams per centimeter squared (g/cm2). Statistically, 68% of repeat scans fall within 1 SD (+/- 0.010 g/cm2 for AP spine L1-L4) and 1 SD (+/- 0.012 g/cm2 for femur total) FRAX is a trademark of the [employer]'s [place] [facility] Metabolic Bone Disease, a World Health Organization (WHO) Collaborating Center. Electronically signed by: Nelson Camacho MD 09/23/2024 12:14 PM EDT
--- OUTSIDE RECORDS SUMMARY | 2024-09-23 11:03 | XMS_ITS | Data Portability ---
Author Organization [facility] Home Service Address [address] [place] [address] Assessment Encounter Date Assessment Date Assessment LastModified by Organization Details LastModified Time 06/01/2024 06/01/2024 [id number] [place] [id number] ([employer]) MDM MODERATE MUST MEET 2 OUT OF [...] MELGOZA Not available Not available Not available MEDICARE ANNUAL WELLNESS 2024 11:45A M DR LIMA Not available Not available Not available Lab HbA1c (hemoglob in A1c), blood 2023 024 [facility], [address] [place] [address], [place], [address], 06/10/2024 09:05:39 C-reactiv e protein, quantitat brianna, serum or plasma 2023 024 [facility], [address] [place] [address], [address], 06/01/2024 10:34:31 uric acid, serum or plasma 2023 [facility], [address] [place] [address], [address], 06/01/2024 10:34:31 erythrocy te sedimenta tion rate by westergre n method 2023 [facility], [address] [place] [address], [address], 06/01/2024 10:34:31 vitamin D, 25-hydrox y, total, serum 2023 024 [facility], [address] [place] [address], [address], 06/01/2024 10:34:31 CMP, serum or plasma 2023 024 [facility], [address] [place] [address], [address], 06/01/2024 10:34:32 CBC 2023 [facility], [address] [place] [address], [address], 06/01/2024 10:34:32 homocyste ine, serum or plasma 2023 [facility], [address] [place] [address], [address], 06/07/2024 11:15:09 lipid panel, blood 2023 024 [facility], [address] [place] [address], [address], 06/10/2024 09:05:39 PSA, serum or plasma 2023 024 [facility], [address] [place] [address], [address], 06/01/2024 10:34:32 TSH, serum or plasma 2023 024 [facility], [address] [place] [address], [address], 06/01/2024 10:34:32 testoster one, total, serum 2023 [facility], [address] [place] [address], [address], 06/09/2024 07:55:52 vitamin B12, serum 2023 024 [facility], [address] [place] [address], [address], 06/01/2024 10:34:31 Referral None recorded. Procedures None recorded. Surgeries None recorded. Imaging XR, lumbosacr al spine, 2 or 3 view 2024 [facility] Central Scheduling, [address] [place] [address], [address], 08/27/2024 09:05:16 Medication Orders Medrol (Marciano) 4 mg tablets in a dose pack 2024 025 [facility] #[id number], [address] [place], [address], 08/26/2024 08:57:54 codeine 10 mg-guaife nesin 100 mg/5 mL oral liquid 2024 025 [id number], [address] [place], [address], 07/29/2024 08:56:24 benzonata te 100 mg capsule 2024 025 [facility][id number], [address] [place], [address], 08/26/2024 08:57:47 Patient TargetsNo targets recorded. Patient Instructions Encounter Date Encounter Id Patient Instructions Last Modified By Organization Details Last Modified Time 06/01/2024 [id number] pulse oximetry* Not available 06/01/2024 10:33:11 Reason for Referral None Reported. Results Created Date Observation Date Name Description Value Unit Range Abnormal Flag Note LastModifiedBy Organization Detail LastModifiedTime 06/01/2006/01/2024 pulse oxime try* Result 98% Not Available [facility] [address] [facility] [address], [place], [address], 06/01/2024 08:17:34 08/28/19 25 08/26/2024 XR, lumbo sacra l spine , 2 or 3 view No observ ation record ed. [address] (Medical Records) [address] [place], [address], 08/29/2024 09:59:31 08/28/19 25 08/26/2024 XR, lumbo sacra l spine , 2 or 3 view No observ ation record ed. [address] (Medical Records) [address] [place], [address], 08/29/2024 09:59:31 09/06/19 25 09/03/2024 MRI, lumba r spine , w/o contr ast No observ ation record ed. [facility] (Medical Records) [address] [place], [address], 09/05/2024 13:08:08 Result Notes None recorded. Problems Name Problem SNOMED Code Status Onset Date Resolution Date Notes Provider Name and Address Organization Details Recorded Time Gastroes ophageal reflux disease 716603853 Active 2019 Not Available [facility] 14:41:37 Exposure to mold Active 2019 Not Available [facility] 3 14:41:37 Right cardiac ventricu lar dilatati on 779456688 Active 2021 Not Available [facility] 3 14:41:37 Right ventricu lar abnormal ity 321193438 Active 2021 Not Available [facility] 3 14:41:37 Asthma 816063666 Active 2021 Not Available [facility] 3 14:41:37 Obstruct brianna sleep apnea syndrome 68834642 Active 2022 Not Available [facility] 3 14:41:37 Gastroes ophageal reflux disease without esophagi tis 944742503 Active 2022 Jose Lima DO [address] [place] [address], [address], [facility] 3 16:48:40 Atypical chest pain 156094884 Active 2022 Jose Lima DO [address] [place] [address], [address], [facility] 3 16:52:13 Acute bronchit is 08663444 Active 2023 ADRIANNA MELGOZA [address] [place] [address], [address], [facility] 4 16:45:48 Multiple joint pain 28520090 Active 2023 Jose Lima DO [address] [place] [address], [address], [facility] 4 10:25:41 Fatigue 62911815 Active 2023 Jose Lima DO [address] [place] [address], [address], [facility] 4 10:27:08 Chronic cough 00216668 Active 2024 ADRIANNA MELGOZA [address] [place] [address], [address], [facility] 5 11:53:31 Lumbago with sciatica 659891821 Active 2024 ADRIANNA MELGOZA [address] [place], [address], [facility] 5 12:14:35 Cervical radiculo mer 99809758 Active 2024 ADRINANA MELGOZA [address] [place], [address], [facility] 5 12:16:20 Acute low back pain 864393781 Active 2024 ADRIANNA MELGOZA [address] [place], [address], [facility] 5 09:12:49 Degenera tion of lumbar interver tebral disc 34130735 Active 2024 ADRIANNA MELGOZA [address] [place], [address], [facility] 5 11:59:59 Osteopen ia 477129976 Active 2024 ADRIANNA MELGOZA [address] [place], [address], [facility] 5 12:00:20 Essentia l hyperten vikram 11986456 Active 2017 Not Available [facility] 3 14:41:37 Hypogona dism 76062007 Active 2017 Not Available [facility] 3 14:41:37 Asthma 629890892 Completed 201710/28/2017 Jose Lima DO [address] [place], [address], [facility] 2 16:42:44 Impaired fasting glycemia 856951876 Active 2017 Not Available [facility] 3 14:41:37 Anxiety 88774339 Active 2017 Not Available [facility] 3 14:41:37 Problem Notes None recorded. Procedures Surgical History None recorded. Imaging Results Imaging Date Name Status LastModified by Organiz ation Details LastModified Time 08/26/2024 XR, lumbosacral spine, 2 or 3 view completed [address] (Medical Records) [address] [place], [address], 08/29/2024 09:59:31 08/26/2024 XR, lumbosacral spine, 2 or 3 view completed [address] (Medical Records) [address] [place], [address], 08/29/2024 09:59:31 09/03/2024 MRI, lumbar spine, w/o contrast completed [email or web address] (Medical Records) [address] [place], [address], 09/05/2024 13:08:08 Procedure Notes None recorded. Medical Equipment None Reported. Allergies Allergen ID Allergen Name Allergen Category Reaction Reaction Severity Criticality Documentation Date Start Date Code Code System Note Provider Name and Address Organization Details Recorded Time 1354 Substance with sulfonami de structure and antibacte rial mechanism of action (substanc e) medicatio n Not available Not available Not available 10/28/2017 59526 8003 SNOMED DANIELLE Duncan [facility] 8 08:27:11 Medications Name Sig [...] Updated DateTime 4 171.45 cm 30.6 kg/m2 22828.2 9 g 69 /min 98 % 98 % 140 mm[Hg] 82 mm[Hg] Zaid Cruz [facility] 4 10:13:21 Date Recorded Body height Body mass index (BMI) Body weight Heart rate Oxygen saturation Oxygen saturation in Arterial blood by Pulse oximetry Systolic blood pressure Diastolic blood pressure Provider Name and Address Organization Details Last Updated DateTime 5 171.45 cm 30.4 kg/m2 86393.7 g 63 /min 98 % 98 % 128 mm[Hg] 82 mm[Hg] Sonal Aragon [facility] 5 09:01:20 Date Recorded Body height Body mass index (BMI) Body weight Heart rate Oxygen saturation Oxygen saturation in Arterial blood by Pulse oximetry Systolic blood pressure Diastolic blood pressure Provider Name and Address Organization Details Last Updated DateTime 5 171.45 cm 30.2 kg/m2 70815.1 g 59 /min 99 % 99 % 142 mm[Hg] 82 mm[Hg] Zaid Cruz [facility] 5 08:59:05 Social History Question Answer Notes LastModified by Organizat ion Details LastModified Time Tobacco Smoking Status Never Smoker Not Available [facility] 04/17/2020 03:36:23 What Was The Date [...] influenza, unspecified formulation 2 completed Not Available [facility] 02/26/2023 14:41:37 COVID-19, mRNA, LNP-S, bivalent, PF, 50 mcg/0.5 mL or 25mcg/0.25 mL dose 2 completed Not Available [facility] 02/26/2023 14:41:37 Influenza, split virus, quadrivalent, preservative 9 completed Not Available [facility] 02/26/2023 14:41:37 Tdap 9 completed Not Available [facility] 02/26/2023 14:41:37 zoster, unspecified formulation 9 completed Not Available [facility] 02/26/2023 14:41:37 zoster, unspecified formulation 0 completed Not Available [facility] 02/26/2023 14:41:37 Influenza, split virus, quadrivalent, preservative 0 completed Not Available [facility] 02/26/2023 14:41:37 Past Encounters Encounter ID Performer Location Encounter Start Date Encounter Closed Date Diagnosis/Indication Diagnosis SNOMED-CT Code Diagnosis ICD10 Code Diagnosis Note [id number] Jose Vita Lima [facility] [address] [facility] [address] 10/28/2017 12:02:53 10/28/2017 16:51:52 Essential hypertension 78896225 I10 Impaired f asting glycemia 249412487 R73.01 [id number] Jose Lima [facility] [address] [facility] [facility] [place] [facility] [place] [address] 04/28/2018 10:30:27 04/28/2018 15:45:46 Impaired fasting glycemia 215552977 R73.01 stable overall with noted lab work Hypogonadism 29775454 E2 9.1 will need to rechk testost in near future Essential hypertension 69114837 I10 bp is stable thus far taking meds without problem Jose Lima [facility] [address] [facility] [facility] [place] [address] 10/27/2018 10:49:15 10/27/2018 11:41:43 Essential hypertension 65656261 I10 bp is stable thus far so we will be discontinu ing his meds by stopping one at a time over the next few weeks and will chk his bp at home Anxiety 36515588 F41.9 doing well and is now off the lorazepam Impaired f asting glycemia 240820220 R73.01 stable overall with noted lab work [id number] Jose Lima [facility] [address] [facility] [address] [address] 05/04/2019 10:55:07 05/04/2019 11:24:52 Impaired fasting glycemia 225515542 R73.01 stable overall with noted lab work Essential hypertension 93537092 I10 here for rechk of bp and this has been excellent without any medication s Anxiety 40646268 F41.9 doing well and is now off the lorazepam Active or passive immunization 854805864 Z23 will be getting these at his pharmacy [id number] Jose Lima [facility] [address] [facility],[place] [address] 07/12/2019 13:39:16 07/12/2019 14:47:53 Anxiety 52182523 F41.9 Very well controlled w/o anxiety Likely this recent incident was anxiety-re lated Essential hypertension 23907361 I10 BP has been elevated since ER visit 150s systolic Will restart amlodipine 5 Hypercholesterolemia 136 30530 E78.00 Cards rec statin Pt refuses at this time and will work on diet/exerc ise Gastroesop hageal reflux disease 165847935 K21.9 symptoms have returned aagain feels is due to the stress overall Screening for malignant neoplasm of colon 273644215 Z12.11 [id number] Jose Lima DO [facility] [address] [facility] [place] [address] 04/13/2020 10:14:26 04/13/2020 11:12:48 Essential hypertension 62304357 I10 bps have been better with the amlodipine Exposure to mold 8807558 298 5369858 Z77.120 with hypersensi tivity leading to respirator y distress i have asked him to remove himself and family from this household as this has become a major medical issue. latest studies have shown removal from that environmen t is the only true treatment that will work Anxiety 78979289 F41.9 Very well controlled w/o anxiety Likely this recent incident was anxiety-re lated Low back pain 632167672 M54.5 [id number] ADRIANNA MELGOZA [facility] [address] [facility],[place] [address] 05/28/2020 08:46:01 05/28/2020 15:28:17 Essential hypertension 08791727 I10 will check labs to see if new risk factors on top of age, gender, and HTN diagnosis will also see if has diabetes and hyperlipid emia too Gastroesop hageal reflux disease 479249724 K21.9 stable Fatigue 60574811 R53.83 will check these labs, related to what his integrativ e medicine doctor was doing though originally due to lyme but now thinks its related to homocystei ne and vitamin levels in the body [id number] Jose Lima DO [facility] [address] [facility],[place] [address] 05/12/2022 15:39:14 05/12/2022 16:34:01 Right cardiac ventricular dilatation 041630086 I51.7 will follow up and get an echoultima te plan is to make sure no abnormalit ies remain History of pulmonary embolus 221150328 Z86.711 see records had a saddle embolus with resultant stunned myocardium etc and he will need a hematology work up dorothy damon but i would like to talk to dr fink Essential hypertension 91238121 I10 bps have been better with the amlodipine [id number] Jose Lima DO [facility] [address] [facility],[place] [address] 05/28/2022 15:41:08 05/28/2022 16:45:58 Right ventricular abnormality 253388359 I51.89 will repeat echo im august Essential hypertension 23055442 I10 bps have been better with the amlodipine Asthma 454607439 J45.90 9 [id number] Jose Lima DO [facility] [address] [facility],[place] [address] 08/27/2022 14:24:08 08/27/2022 17:07:11 Essential hypertension 36380154 I10 bp may be borderline pt will monitior at home more closely Advance care planning 71 2915767 Z71.89 utd Screening for malignant neoplasm of colon 967463542 Z12.11 offered and will do the Obstructiv e sleep apnea syndrome 44323043 G47.33 pt reluctant to do [id number] Jose Lima DO [facility] [address] [facility],[place] [address] 10/31/2022 14:48:14 10/31/2022 15:55:38 Essential hypertension 81871438 I10 bp may be borderline pt will monitior at home more closely Obstructiv e sleep apnea syndrome 45418062 G47.33 has an appt in december but needs to do home study [id number] Jose Lima [facility] [address] [facility] [address] [address] 04/13/2023 16:11:04 04/14/2023 08:13:12 Anxiety 52269860 F41.9 Very well controlled w/o anxiety Likely this recent incident was anxiety-re lated Asthma 225476735 J45.90 9 here Hypogonadism 70593202 E2 9.1 will need to rechk testost in near future Obstructiv e sleep apnea syndrome 59636313 G47.33 has an appt in decemberbut needs to do home study Essential hypertension 46048954 I10 bp may be borderline pt will monitior at home more closely Gastroesop hageal reflux disease 369116229 K21.9 symptoms have returned again feels is due to the stress overall but had a very severe episode for hours then disappeare d Atypical chest pain 1025 43061 R07.89 poss this gerd episode but need to be sure History of pulmonary embolus 361085038 Z86.711 see records had a saddle embolus with resultant stunned myocardium etc and he will need a hematology work up dorothy damon but i would like to talk to dr fink [id number] Jose Lima DO [facility] [address] [facility], [place] [address] 05/15/2023 15:22:05 05/18/2023 10:16:40 Asthma 455563385 J45.909 here and is doing ok overall Hypogonadism 00078578 E2 9.1 will need to rechk testost in near future but right now he does not wish to have any lab donewants to exercise and lose wgt first Essential hypertension 37237224 I10 bp has been doing ok no issuesdisc ussed wgt loss after he has going to [facility] would like to get lab before and after [id number] Jose Lima DO [facility] [address] [facility] [address],[place] [address] 06/01/2024 10:06:04 06/01/2024 10:39:53 Asthma 291305246 J45.909 here and is doing ok overall Essential hypertension 82954669 I10 bp has been doing ok no issuesdisc ussed wgt loss [facility] would like to get lab before and after Gastroesop hageal reflux disease 398889138 K21.9 symptoms have returned again feels is due to the stress overall but had a very severe episode for hours then disappeare d Impaired f asting glycemia 823416942 R73.01 stable overall with noted lab work Multiple joint pain 3567 8005 M25.50 Fatigue 67927504 R53.83 [id number] ADRIANNA MELGOZA [facility] [address] [place] [address] [address] [address] 07/13/2024 08:21:14 07/13/2024 14:31:37 Chronic cough 20641674 R05.3 [id number] ADRIANNA MELGOZA [facility] [address] [place] [address] [address] [place],[address] [facility] [place] [address] 07/29/2024 08:53:36 07/29/2024 09:40:41 Chronic cough 56207159 R05.3 Asthma 468461099 J45.30 does not want an inhaler Fatigue 95943469 R53.83 labs normal, declines f/u pulm testing or f/u echo [id number] ADRIANNA MELGOZA [facility] [address] [facility] [address] [place] [facility] [place] [address] 08/16/2024 08:29:01 08/16/2024 14:13:29 Lumbago with sciatica 912647365 M54.42 declined prednisone but agreed to medrol Cervical radiculopathy 29839456 M54.12 [id number] ADRIANNA MELGOZA [facility] [address] [place] [address] [address] [address] 08/26/2024 08:49:19 08/26/2024 09:35:21 Acute low back pain 450929589 M54.51 start with XR Lumbago with sciatica 20 6126157 M54.42 declined meds, will start with XR Health Concerns Section Related Observation LastModified by Organization Detai ls LastModified Time None Recorded Concern Status LastModified by Organization Details LastModified Time None Recorded Advance Directives Directive None Recorded Payers Encounter Date Sequence Insurance Name Policy Number Policy Chaney Covered Member ID Chaney Member ID Guarantor Name 06/01/2024 1 [place] PPO) [id number] Ramsey Motyka [id number] Ramsey Motyka 07/13/2024 1 [place] PPO) [id number] Ramsey Motyka [id number] Ramsey Motyka 07/29/2024 1 [place] PPO) [id number] Ramsey Motyka [id number] Ramsey Motyka 08/16/2024 1 [place] PPO) [id number] Ramsey Motyka [id number] Ramsey Motyka 08/26/2024 1 [place] PPO) [id number] Ramsey Motyka [id number] Ramsey Motyka Notes Date Note Type Note Provider Name and Address Organization Details Recorded Time 4 text/htm l here for rechkstates doing well overall but states that he is getting aches and pains in joints and musclescomes and goes no pattern can be fine one day and hurting anotherdoes state he needs to lose weight Jose Lima DO [address] [facility], [place], [address], [facility] 06/01/2024 10:37:06 5 text/htm l The patient is participating in this appointment via telemedicine communication with a phone call/video calling service ([employer])The patient consents to use of these platforms [...] that chemical smells like tires, paint fumes, cone cleaner linger for him and cause a lot of symptoms ADRIANNA MELGOZA [address] [facility], [place], [address], [facility] 07/13/2024 12:03:33 5 text/htm [...] cardio who cleared him ADRIANNA MELGOZA [address] [place], [address], [facility] 07/29/2024 09:32:29 5 text/htm l c/o sciatica The patient is participating in this appointment via telemedicine communication with a phone call/video calling service ([employer])The patient consents to use of these platforms [...] medrol dose pakdeclined prednisone ADRIANNA MELGOZA [address] [facility], [place], [address], [facility] 08/16/2024 12:22:58 5 text/htm [...] from normal presentationpossibly stronger steroid ADRIANNA MELGOZA [address] [place] [address], [address], [facility] 08/26/2024 09:13:54
== END 2024-09-23 10:15 | disposition home or self-care (01) ==
LOC: HO.MAMMO 10:14
PROVIDERS: Visit Provider Physician Assistant
DX: Z13.820 Encounter for screening for osteoporosis (principal); M85.80 Other specified disorders of bone density and structure, unspecified site; M81.0 Age-related osteoporosis without current pathological fracture
CPT/HCPCS: 77080

== ENCOUNTER → 2024-09-23 10:30 | Outpatient (BNV) | payer MEDICARE, SELFPAY | PROVIDERS: Visit Provider Radiology Diagnostic Radiology | DX: M81.0 Age-related osteoporosis without current pathological fracture (principal) | CPT/HCPCS: 77080 ==

== ENCOUNTER 2024-10-25 10:08 | Outpatient (REF) | payer MEDICARE, SELFPAY ==
--- NOTE | ~2024-10-25 | XR_ITS ---
EXAMINATION: XR CERVICAL SPINE 2-3 VIEWS HISTORY: RADICULOPATHY COMPARISON: There are no prior studies for comparison. FINDINGS: AP, lateral, and open-mouth odontoid views of the cervical spine are submitted. Osseous mineralization is normal. Seven cervical vertebral bodies are identified maintaining normal height and alignment without evidence of fracture or subluxation. There is mild to moderate degenerative disc disease at the C4-5 and C5-C6 levels with disc space narrowing and osteophyte formation. Milder changes are noted at the remaining levels. There is osteoarthritis of the facet joints. The odontoid and lateral masses of C1 are intact. There is no prevertebral soft tissue swelling. XR/XR cervical spine 3V IMPRESSION: Degenerative changes of the cervical spine as described. Electronically signed by: Nelson Camacho MD 10/25/2024 10:40 AM EDT
--- OUTSIDE RECORDS SUMMARY | 2024-10-25 11:11 | XMS_ITS | Data Portability ---
Author Organization [facility] Home Service Address [address] [place] [address] Assessment Encounter Date Assessment Date Assessment LastModified by Organization Details LastModified Time 08/16/2024 08/16/2024 Patient agreed and verbally consents to this audio and video Telehealth appt via a secure platform [email or web address] Not available 08/16/2024 12:16:51 10/24/2024 10/24/2024 Patient presente d to office today for their Medicare Annual Wellness Visit. Education was provided on healthy nutrition, including a diet rich in fruits and vegetables, minimizing simple carbohydrates, salt, and saturated fats. Encouraged regular cardiovascular exercise such as walking at least 30 minutes daily, 5 times per week. Emphasized preventive health measures and educated pt on fall prevention and community-based lifestyle interventions to help reduce health risks and promote healthy living. [email or web address] Not available 10/21/2024 16:05:52 Plan of Treatment Reminders Order Date Submit Date Provider Last Modified By Organization Details Last Modified Time Details Appointments MEDICARE ANNUAL WELLNESS 2025 10:00A M DR LIMA Not available Not available Not available Lab None recorded. Referral None recorded. Procedures None recorded. Surgeries None recorded. Imaging XR, cervical spine, 2 or 3 view 2024 025 [facility] Central Scheduling, [address] [place], [address], 10/25/2024 10:43:51 XR, lumbosacr al spine, 2 or 3 view 2024 025 [facility] Central Scheduling, [address] [place], [address], 08/27/2024 09:05:16 Medication Orders Medrol (Marciano) 4 mg tablets in a dose pack 2024 025 [facility]Pharmacy #[id number], [address] [place], [address], 08/26/2024 08:57:54 Patient TargetsNo targets recorded. Patient Instructions Encounter Date Encounter Id Patient Instructions Last Modified By Organization Details Last Modified Time 10/24/2024 [id number] prediabetes: car e instructions Not available 10/24/2024 12:18:13 osteoporosis: care instructions Not available 10/24/2024 12:18:13 pulse oximetry* Not available 10/24/2024 12:18:13 advance care planning: care instructions [email or web address] Not available 10/24/2024 12:18:13 Discussed and explained advance directives such as standard forms to the {{patient caregiv er patient and caregiver}}. Face to face discussion lasted for a duration of ___ minutes. [email or web address] Not available 10/21/2024 16:05:52 Reason for Referral None Reported. Results Created Date Observation Date Name Description Value Unit Range Abnormal Flag Note LastModifiedBy Organization Detail LastModifiedTime 10/25/1910/24/2024 pulse oxime try* Result 98 Not Available [facility] [address] [facility] [facility] [address], [place], [address], 10/21/2024 16:08:21 08/28/1908/26/2024 XR, lumbo sacra l spine , 2 or 3 view No observ ation record ed. [address] (Medical Records) [address] [place], [address], 08/29/2024 09:59:31 08/28/1908/26/2024 XR, lumbo sacra l spine , 2 or 3 view No observ ation record ed. [address] (Medical Records) [address] [place], [address], 08/29/2024 09:59:31 09/06/19 25 09/03/2024 MRI, lumba r spine , w/o contr ast No observ ation record ed. [email or web address] [facility] (Medical Records) [address] [place], [address], 09/05/2024 13:08:08 09/24/19 25 09/23/2024 bone densi ty No observ ation record ed. [email or web address] [facility] [address] [place], [address], 09/23/2024 13:31:55 10/26/19 25 10/25/2024 XR, cervi janina spine , 2 or 3 view No observ ation record ed. [facility] (Medical Records) [address] [place], [address], 10/25/2024 10:43:51 Result Notes None recorded. Problems Name Problem SNOMED Code Status Onset Date Resolution Date Notes Provider Name and Address Organization Details Recorded Time Gastroes ophageal reflux disease 605277941 Active 2019 Not Available [facility] 3 14:41:37 Exposure to mold Active 2019 Not Available [facility] 3 14:41:37 Right cardiac ventricu lar dilatati on 856772362 Active 2021 Not Available [facility] 3 14:41:37 Right ventricu lar abnormal ity 374814589 Active 2021 Not Available [facility] 3 14:41:37 Asthma 566710619 Active 2021 Not Available [facility] 3 14:41:37 Obstruct brianna sleep apnea syndrome 73466022 Active 2022 Not Available [facility] 3 14:41:37 Gastroes ophageal reflux disease without esophagi tis 543424000 Active 2022 Jose Lima, DO [address] [facility], [place], [address], [facility] 3 16:48:40 Atypical chest pain 608080349 Active 2022 Jose Lima, DO [address] [place] [address], [address], [facility] 3 16:52:13 Acute bronchit is 26453512 Active 2023 ADRIANNA MELGOZA [address] [place] [address], [address], [facility] 4 16:45:48 Pain of multiple joints 14792282 Active 2023 Jose Lima, DO [address] [place] [address], [address], [facility] 4 10:25:41 Fatigue 76711533 Active 2023 Jose Lima, DO [address] [place] [address], [address], [facility] 4 10:27:08 Chronic cough 13112589 Active 2024 ADRIANNA MELGOZA [address] [place] [address], [address], [facility] 5 11:53:31 Lumbago with sciatica 053799759 Active 2024 ADRIANNA MELGOZA [address] [place] [address], [address], [facility] 5 12:14:35 Cervical radiculo mer 86025536 Active 2024 Jose Lima, [address] [place] [address], [address], [facility] 5 12:21:06 Acute low back pain 869969505 Active 2024 ADRIANNA MELGOZA [address] [place] [address], [address], [facility] 5 09:12:49 Degenera tion of lumbar interver tebral disc 31683177 Active 2024 ADRIANNA MELGOZA [address] [place] [address], [address], [facility] 5 11:59:59 Osteopen ia 042142169 Active 2024 ADRIANNA MELGOZA [address] [place], [address], [facility] 5 12:00:20 Osteopor osis 05911416 Active 2024 ADRIANNA MELGOZA [address] [place], [address], [facility] 5 09:09:10 [facility] hyperten vikram 25984624 Active 2017 Not Available [facility] 3 14:41:37 Asthma 449452011 Completed 201710/28/2017 Jose Lima, [address] [place], [address], [facility] 2 16:42:44 Impaired fasting glycemia 182317999 Active 2017 Not Available [facility] 3 14:41:37 Anxiety 73791945 Active 2017 Not Available [facility] 3 14:41:37 Problem Notes None recorded. Procedures Surgical History None recorded. Imaging Results Imaging Date Name Status LastModified by Organiz ation Details LastModified Time 08/26/2024 XR, lumbosacral spine, 2 or 3 view completed [address] (Medical Records) [address] [place] [address], [address], 08/29/2024 09:59:31 08/26/2024 XR, lumbosacral spine, 2 or 3 view completed [address] (Medical Records) [address] [place] [address], [address], 08/29/2024 09:59:31 09/03/2024 MRI, lumbar spine, w/o contrast completed [facility] (Medical Records) [address] [place] [address], [address], 09/05/2024 13:08:08 09/23/2024 bone density completed [email or web address] [facility] [place] [address] [place], [address], 09/23/2024 13:31:55 10/25/2024 XR, cervical spine, 2 or 3 view active [facility] (Medical Records) [address] [facility], [place], [address], 10/25/2024 10:43:51 Procedure Notes None recorded. Medical Equipment None Reported. Allergies Allergen ID Allergen Name Allergen Category Reaction Reaction Severity Criticality Documentation Date Start Date Code Code System Note Provider Name and Address Organization Details Recorded Time 1354 Substance with sulfonami de structure and antibacte rial mechanism of action (substanc e) medicatio n Not available Not available Not available 10/28/2017 32654 8003 SNOMED [address] z[address] MA [facility] 8 08:27:11 Medications Name [...] No t Available amlodipine 10 mg tablet TAKE 1 TABLET BY MOUTH EVERY DAY active Not Available Not Available No [...] Updated DateTime 5 171.45 cm 30.4 kg/m2 17520.7 g 63 /min 98 % 98 % 128 mm[Hg] 82 mm[Hg] Sonal Aragon [facility] 5 09:01:20 Date Recorded Body height Body mass index (BMI) Body weight Heart rate Oxygen saturation Oxygen saturation in Arterial blood by Pulse oximetry Systolic blood pressure Diastolic blood pressure Provider Name and Address Organization Details Last Updated DateTime 5 171.45 cm 30.2 kg/m2 35014.1 g 59 /min 99 % 99 % 142 mm[Hg] 82 mm[Hg] Zaid Gallo [facility] 5 08:59:05 Date Recorded Body height Body mass index (BMI) Body weight Heart rate Oxygen saturation Oxygen saturation in Arterial blood by Pulse oximetry Systolic blood pressure Diastolic blood pressure Provider Name and Address Organization Details Last Updated DateTime 5 171.45 cm 30.9 kg/m2 10226.4 7 g 67 /min 98 % 98 % 140 mm[Hg] 80 mm[Hg] Vilma Tarango [facility] 5 11:49:21 Social History Question Answer Notes LastModified by Organizat ion Details LastModified Time Tobacco Smoking Status Never Smoker Not Available [facility] 04/17/2020 03:36:23 What Was The Date Of Your Most Recent Tobacco Screening? 10/24/2024 [email or web address] Information not available 10/24/2024 Sex: Male Functional Status Question Answer Note LastModified by Organization D etails LastModified Time Do you or have you ever used any other forms of tobacco or nicotine? No Information not available 08/27/2022 Mental Status None recorded. Family History Nothing [...] influenza, unspecified formulation 2 completed Not Available [facility] 02/26/2023 14:41:37 COVID-19, mRNA, LNP-S, bivalent, PF, 50 mcg/0.5 mL or 25mcg/0.25 mL dose 2 completed Not Available [facility] 02/26/2023 14:41:37 Influenza, split virus, quadrivalent, preservative 9 completed Not Available [facility] 02/26/2023 14:41:37 Tdap 9 completed Not Available [facility] 02/26/2023 14:41:37 zoster, unspecified formulation 9 completed Not Available [facility] 02/26/2023 14:41:37 zoster, unspecified formulation 0 completed Not Available [facility] 02/26/2023 14:41:37 Influenza, split virus, quadrivalent, preservative 0 completed Not Available [facility] 02/26/2023 14:41:37 Past Encounters Encounter ID Performer Location Encounter Start Date Encounter Closed Date Diagnosis/Indication Diagnosis SNOMED-CT Code Diagnosis ICD10 Code Diagnosis Note [id number] DO [facility] [address] [facility],[place] [address] 10/28/2017 12:02:53 10/28/2017 16:51:52 Essential hypertension 02588708 I10 Impaired f asting glycemia 104986599 R73.01 [id number] Jose Lima [facility] [address] [facility] [address] [address] 04/28/2018 10:30:27 04/28/2018 15:45:46 Impaired fasting glycemia 470824143 R73.01 stable overall with noted lab work Hypogonadism 21342478 E2 9.1 will need to rechk testost in near future Essential hypertension 28766342 I10 bp is stable thus far taking meds without problem Jose Lima [facility] [address] [facility] [address], [place] [address] 10/27/2018 10:49:15 10/27/2018 11:41:43 Essential hypertension 20949623 I10 bp is stable thus far so we will be discontinu ing his meds by stopping one at a time over the next few weeks and will chk his bp at home Anxiety 06781567 F41.9 doing well and is now off the lorazepam Impaired f asting glycemia 063140186 R73.01 stable overall with noted lab work [id number] Jose Lima [facility] [address] [facility], [place] [address] 05/04/2019 10:55:07 05/04/2019 11:24:52 Impaired fasting glycemia 352167669 R73.01 stable overall with noted lab work Essential hypertension 44312939 I10 here for rechk of bp and this has been excellent without any medication s Anxiety 60431612 F41.9 doing well and is now off the lorazepam Active or passive immunization 705944165 Z23 will be getting these at his pharmacy [id number] Jose Lima [facility] [address] [facility] [address] [address] 07/12/2019 13:39:16 07/12/2019 14:47:53 Anxiety 94097345 F41.9 Very well controlled w/o anxiety Likely this recent incident was anxiety-re lated Essential hypertension 56629494 I10 BP has been elevated since ER visit 150s systolic Will restart amlodipine 5 Hypercholesterolemia 136 96056 E78.00 Cards rec statin Pt refuses at this time and will work on diet/exerc ise Gastroesop hageal reflux disease 169952613 K21.9 symptoms have returned aagain feels is due to the stress overall Screening for malignant neoplasm of colon 581240461 Z12.11 [id number] Jose Lima DO [facility] [address] [facility],[place] [address] 04/13/2020 10:14:26 04/13/2020 11:12:48 Essential hypertension 91971550 I10 bps have been better with the amlodipine Exposure to mold 5261025 498 0695011 Z77.120 with hypersensi tivity leading to respirator y distress i have asked him to remove himself and family from this household as this has become a major medical issue. latest studies have shown removal from that environmen t is the only true treatment that will work Anxiety 09747243 F41.9 Very well controlled w/o anxiety Likely this recent incident was anxiety-re lated Low back pain 364385584 M54.5 [id number] Jose Lima DO [facility] [address] [facility],[place] [address] 05/28/2020 08:46:01 05/28/2020 15:28:17 Essential hypertension 90850309 I10 will check labs to see if new risk factors on top of age, gender, and HTN diagnosis will also see if has diabetes and hyperlipid emia too Gastroesop hageal reflux disease 457540858 K21.9 stable Fatigue 44442328 R53.83 will check these labs, related to what his integrativ e medicine doctor was doing though originally due to lyme but now thinks its related to homocystei ne and vitamin levels in the body [id number] Jose Lima DO [facility] [address] [facility], [place] [address] 05/12/2022 15:39:14 05/12/2022 16:34:01 Right cardiac ventricular dilatation 563270861 I51.7 will follow up and get an echoultima te plan is to make sure no abnormalit ies remain History of pulmonary embolus 047770470 Z86.711 see records had a saddle embolus with resultant stunned myocardium etc and he will need a hematology work up dorothy damon but i would like to talk to dr fink Essential hypertension 01976205 I10 bps have been better with the amlodipine [id number] Jose Lima [facility] [address] [facility],[place] [address] 05/28/2022 15:41:08 05/28/2022 16:45:58 Right ventricular abnormality 268003109 I51.89 will repeat echo im august Essential hypertension 64746818 I10 bps have been better with the amlodipine Asthma 656695150 J45.90 9 [id number] Jose Lima [facility] [address] [facility],[place] [address] 08/27/2022 14:24:08 08/27/2022 17:07:11 Essential hypertension 04638541 I10 bp may be borderline pt will monitior at home more closely Advance care planning 71 2488389 Z71.89 utd Screening for malignant neoplasm of colon 724355950 Z12.11 offered and will do the Obstructiv e sleep apnea syndrome 55237174 G47.33 pt reluctant to do [id number] Jose Lima [facility] [address] [facility],[place] [address] 10/31/2022 14:48:14 10/31/2022 15:55:38 Essential hypertension 82506678 I10 bp may be borderline pt will monitior at home more closely Obstructiv e sleep apnea syndrome 76726435 G47.33 has an appt in december but needs to do home study [id number] Jose Lima [facility] [address] [facility] [address] [address] 04/13/2023 16:11:04 04/14/2023 08:13:12 Anxiety 67006212 F41.9 Very well controlled w/o anxiety Likely this recent incident was anxiety-re lated Asthma 970138005 J45.90 9 here Hypogonadism 29157230 E2 9.1 will need to rechk testost in near future Obstructiv e sleep apnea syndrome 38077151 G47.33 has an appt in decemberbut needs to do home study Essential hypertension 11166923 I10 bp may be borderline pt will monitior at home more closely Gastroesop hageal reflux disease 130494229 K21.9 symptoms have returned again feels is due to the stress overall but had a very severe episode for hours then disappeare d Atypical chest pain 1025 65534 R07.89 poss this gerd episode but need to be sure History of pulmonary embolus 575031065 Z86.711 see records had a saddle embolus with resultant stunned myocardium etc and he will need a hematology work up dorothy damon but i would like to talk to dr fink [id number] Jose Lima [facility] [address] [facility] [address] 05/15/2023 15:22:05 05/18/2023 10:16:40 Asthma 130822576 J45.909 here and is doing ok overall Hypogonadism 78561289 E2 9.1 will need to rechk testost in near future but right now he does not wish to have any lab donewants to exercise and lose wgt first Essential hypertension 27002385 I10 bp has been doing ok no issuesdisc ussed wgt loss after he has going [facility] trail would like to get lab before and after [id number] Jose Lima, [facility] [address] [facility],[place] [address] 06/01/2024 10:06:04 06/01/2024 10:39:53 Asthma 217008658 J45.909 here and is doing ok overall Essential hypertension 37053543 I10 bp has been doing ok no issuesdisc ussed wgt loss after he has going [facility] trail would like to get lab before and after Gastroesop hageal reflux disease 604567908 K21.9 symptoms have returned again feels is due to the stress overall but had a very severe episode for hours then disappeare d Impaired f asting glycemia 782131241 R73.01 stable overall with noted lab work Pain of mu ltiple joints 30037322 M25.50 Fatigue 37616449 R53.83 [id number] Jose Lima [facility] Internal [facility] [address] [facility], ite [facility] [place] [address] 07/13/2024 08:21:14 07/13/2024 14:31:37 Chronic cough 52312369 R05.3 [id number] Jose Lima [facility] [address] [facility], [facility] [place] [address] 07/29/2024 08:53:36 07/29/2024 09:40:41 Chronic cough 02549943 R05.3 Asthma 572723749 J45.30 does not want an inhaler Fatigue 12882737 R53.83 labs normal, declines f/u pulm testing or f/u echo [id number] Jose Lima [address],[place], [place] 7 08/16/2024 08:29:01 08/16/2024 14:13:29 Lumbago with sciatica 842547181 M54.42 declined prednisone but agreed to medrol Cervical radiculopathy 45958726 M54.12 [id number] Jose Lima [facility] Internal [address], ite [facility] [place] [address] 08/26/2024 08:49:19 08/26/2024 09:35:21 Acute low back pain 480099861 M54.51 start with XR Lumbago with sciatica 20 4813728 M54.42 declined meds, will start with XR [id number] Jose Lima [facility] Internal [address], [place] [address] 09/27/2024 08:51:55 09/27/2024 09:26:26 Osteoporosis 43775501 M81.0 will monitor his calcium and vitamin D levelswill add vitamin K2 on as well Degenerati on of lumbar intervertebral disc 72246163 M51.369 [id number] Jose Lima [facility] Internal [address],[place] [address] 10/24/2024 11:43:29 10/24/2024 13:55:36 Screening for cardiovascular system disease 150757318 Z13.6 he is up to date Screening for malignant neoplasm of colon 844058385 Z12.11 offered and will have him decide Asthma 254622104 J45.30 here and is doing ok overall Essential hypertension 75324245 I10 bp has been doing ok no issuesdisc ussed wgt loss General ex amination of patient 015552505 Z00.01 noted problems with his back and eval by dr FERRER Osteoporosis 48405190 M8 1.0 will repeat bone scan in 1 year as he is doing his supplement s firstthis is worrisome for me and feel he should really consider tx Impaired f asting glycemia 894595941 R73.01 stable overall with noted lab work Cervical radiculopathy 34894001 M54.12 Health Concerns Section Related Observation LastModified by Organization Detai ls LastModified Time None Recorded Concern Status LastModified by Organization Details LastModified Time None Recorded Advance Directives Directive None Recorded Payers Encounter Date Sequence Insurance Name Policy Number Policy Chaney Covered Member ID Chaney Member ID Guarantor Name 07/29/2024 1 [place] PPO) [id number] Ramsey Motyka [id number] Ramsey Motyka 08/16/2024 1 [place] PPO) [id number] Ramsey Motyka [id number] Ramsey Motyka 08/26/2024 1 [place] PPO) [id number] Ramsey Motyka [id number] Ramsey Motyka 09/27/2024 1 [place] PPO) [id number] Ramsey Motyka [id number] Ramsey Motyka 10/24/2024 1 [place] PPO) [id number] Ramsey Motyka [id number] Ramsey Freeman Notes Date Note Type Note Provider Name and Address Organization Details Recorded Time 5 text/htm l c/o cough the patient [...] cardio who cleared him ADRIANNA MELGOZA [address] [place], [address], [facility] 07/29/2024 09:32:29 5 text/htm l c/o sciatica The patient is participating in this appointment via telemedicine communication with a phone call/video calling service ([employer])The patient consents to use of these platforms [...] medrol dose pakdeclined prednisone ADRIANNA MELGOZA [address] [place], [address], [facility] 08/16/2024 12:22:58 5 text/htm [...] normal presentationpossibly stronger steroid ADRIANNA MELGOZA [address] [place], [address], [facility] 08/26/2024 09:13:54 5 text/htm l f/u MRI and bone density the patient has osteoporosis and degenerative changes with nerve compression at lumbar spinethe patient has been doing PT for the degenerative changes and S1 nerve compressionnotes he doesn't see a difference, still getting pain every once and awhile and unable to complete all the PT exercises they are having him do predominantly having pain the patient has a f/u with Dr. Ferrer scheduled from last week, is coming upthe patient reports that he will see what they think is appropriate, ie if surgery is needed vs continued surveillance and conservative treatmentseeing them 10/20/24 for a consultation the patient agreed to add calcium and vitamin K2 ADRIANNA MELGOZA [address] [place], [address], [facility] [facility] 09/27/2024 09:14:26 5 text/htm l Care Management - AsthmaReported bypatient.Severity:impro ving; does not interfere with daily activities; does not disturb sleep; does not cause nighttime awakening Associated Symptoms:no fever; no fatigue; no irritability; no cough; normal appetite; no change in productivityCare Management - HypertensionReported bypatient.Self Care:not under emotional stress Severity:symptoms are improving; does not interfere with daily activities Associated Symptoms:no dizziness; no lightheadedness; no chest pain; no shortness of breath; no palpitations; no edema; no calf muscle cramps; no blurred vision; no confusion; no headaches; no fatigueMedicare Annual Wellness VisitReported bypatient.Diet and Nutrition:healthy diet Fracture Risk:no history of fractures; no recent explained fracture; no sudden unexplained fractures; no previous musculoskeletal injuries Physical Activity:exercises on a regular basis; recent increase in physical activity; good physical condition Depression Risk:never feels sad, empty, or tearful; no loss of interest in activities; no significant changes in weight; no sleep disturbances or insomnia; no agitation; no loss of energy; no feelings of worthlessness or guilt; no thoughts of suicide; no history of depression; no history of mood disorders Orientation:no disorientation to time; no disorientation to date; no disorientation to place Concentration and Memory:no decreased concentrating ability; no memory lapses or loss; does not forget words Speech/Motor difficulties:no speech difficulties; no difficulty expressing formulated concepts; no difficulty with fine manipulative tasks; no difficulty writing/copying; no slowed reaction time; does not knock things over when trying to pick them up Hearing:no loss of hearing Vision:no vision problems Activities of Daily Living:able to bathe with limited or no assistance; able to contol urination and bowels; able to dress with limited or no assistance; able to feed self with limited or no assistance; able to get out of chair or bed with limited or no assistance; able to groom with limited or no assistance; able to toilet with limited or no assistance Instrumental Activities of Daily Living:able to do house work with limited or no assistance; able to grocery shop with limited or no assistance; able to manage medications with limited or no assistance; able to manage money with limited or no assistance; able to prepare meals with limited or no assistance; able to use the phone with limited or no assistance Falls Risk Assessment:no frequent falls while walking; no fall in the past year; no fall since last visit; no dizziness/vertigo Home Safety:no unsafe carrie hazzards; no unsafe stairs; no unsafe gas appliances; working smoke/CO detectors; wears protective head gear for biking/high velocity; use of seatbelts; practicing 'safer sex'; no vision or hearing loss while driving; no fire arms; has hand bars in the bathroom/shower; good lighting in the home has been troubled with his lumbar back had been pretty bad while coughing and had covid with extensive coughing relates that he has had issue with his legs etc Jose Lima, DO [address] [facility], [place], [address], [facility] 10/24/2024 12:22:21
--- OUTSIDE RECORDS SUMMARY | 2024-10-25 11:11 | XMS_ITS | Continuity of Care Document ---
Author Organization [place] [facility] Address [address] [place] [address] [place] [address] Assessment Encounter Date Assessment Date Assessment LastModified by Organization Details LastModified Time 10/24/2024 10/24/2024 Patient presente d to office [...] spine, 2 or 3 view 2024 025 [facility] Central Scheduling, [address] [place] [address], [id number], 10/25/2024 10:43:51 Medication Orders None recorded. Patient TargetsNo targets recorded. Patient Instructions Encounter Date Encounter Id Patient Instructions Last Modified By Organization Details Last Modified Time 10/24/2024 [id number] prediabetes: car e instructions Not available 10/24/2024 12:18:13 osteoporosis: care instructions Not available 10/24/2024 12:18:13 pulse oximetry* Not available 10/24/2024 12:18:13 advance care planning: care instructions Not available 10/24/2024 12:18:13 Discussed and explained [...] pulse oxime try* Result 98 Not Available [facility] [address], [place], [address], 10/21/2024 16:08:21 10/26/1910/25/2024 XR, cervi janina spine , 2 or 3 view No observ ation record ed. [facility] (Medical Records) [address], [place], [address], 10/25/2024 10:43:51 Result Notes None recorded. Problems Name Problem SNOMED Code Status Onset Date Resolution Date Notes Provider Name and Address Organization Details Recorded Time Gastroes ophageal reflux disease 550195258 Active 2019 Not Available [facility] 3 14:41:37 Exposure to mold Active 2019 Not Available [facility] 3 14:41:37 Right cardiac ventricu lar dilatati on 004633567 Active 2021 Not Available [facility] 3 14:41:37 Right ventricu lar abnormal ity 797940882 Active 2021 Not Available [facility] 3 14:41:37 Asthma 758703574 Active 2021 Not Available [facility] 3 14:41:37 Obstruct brianna sleep apnea syndrome 32868800 Active 2022 Not Available [facility] 3 14:41:37 Gastroes ophageal reflux disease without esophagi tis 976423973 Active 2022 Jose Lima DO [address] [facility], [place], [address], [facility] 3 16:48:40 Atypical chest pain 707692190 Active 2022 Jose Lima, DO [address] [place] [address], [phone], [facility] 3 16:52:13 Acute bronchit is 71573505 Active 2023 ADRIANNA MELGOZA [address] [place] [address], [phone], [facility] 4 16:45:48 Pain of multiple joints 47712796 Active 2023 Jose Lima DO [address] [place] [address], [address], [facility] 4 10:25:41 Fatigue 58958957 Active 2023 Jose Lima DO [address] [place] [address], [address], [facility] 4 10:27:08 Chronic cough 97111379 Active 2024 ADRIANNA MELGOZA [address] [place] [address], [address], [facility] 5 11:53:31 Lumbago with sciatica 514247831 Active 2024 ADRIANNA MELGOZA [address] [place] [address], [address], [facility] 5 12:14:35 Cervical radiculo mer 60290876 Active 2024 Jose Lima DO [address] [place] [address], [address], [facility] 5 12:21:06 Acute low back pain 972182853 Active 2024 ADRIANNA MELGOZA [address] [place] [address], [address], [facility] 5 09:12:49 Degenera tion of lumbar interver tebral disc 40391148 Active 2024 ADRIANNA MELGOZA [address] [place], [address], [facility] 5 11:59:59 Osteopen ia 061196673 Active 2024 ADRIANNA MELGOZA [address] [place], [address], [facility] 5 12:00:20 Osteopor osis 06880522 Active 2024 ADRIANNA MELGOZA [address] [place], [address], [facility] 5 09:09:10 Essliu auguste hyperten vikram 26772507 Active 2017 Not Available [facility] 3 14:41:37 Asthma 320244122 Completed 201710/28/2017 Jose Lima, [address] [place] [address], [phone], [facility] 2 16:42:44 Impaired fasting glycemia 490489123 Active 2017 Not Available [facility] 3 14:41:37 Anxiety 55120306 Active 2017 Not Available [facility] 3 14:41:37 Problem Notes None recorded. Medical Equipment None Reported. Allergies Allergen ID Allergen Name Allergen Category Reaction Reaction Severity Criticality Documentation Date Start Date Code Code System Note Provider Name and Address Organization Details Recorded Time 1354 Substance with sulfonami de structure and antibacte rial mechanism of action (substanc e) medicatio n Not available Not available Not available 10/28/2017 87964 8003 SN[facility]ED [facility] [place] 8 08:27:11 Medications Name Sig [...] Updated DateTime 5 171.45 cm 30.9 kg/m2 56095.4 7 g 67 /min 98 % 98 % 140 mm[Hg] 80 mm[Hg] [facility] 5 11:49:21 Social History Question Answer Notes LastModified by Organizat ion Details LastModified Time Tobacco Smoking Status Never Smoker Not Available [facility] 04/17/2020 03:36:23 What Was The Date Of Your Most Recent Tobacco Screening? 10/24/2024 [email or web address] Information not available 10/24/2024 Sex: Male Functional [...] influenza, unspecified formulation 2 completed Not Available [facility] 02/26/2023 14:41:37 COVID-19, mRNA, LNP-S, bivalent, PF, 50 mcg/0.5 mL or 25mcg/0.25 mL dose 2 completed Not Available [facility] 02/26/2023 14:41:37 Influenza, split virus, quadrivalent, preservative 9 completed Not Available [facility] 02/26/2023 14:41:37 Tdap 9 completed Not Available [facility] 02/26/2023 14:41:37 zoster, unspecified formulation 9 completed Not Available [facility] 02/26/2023 14:41:37 zoster, unspecified formulation 0 completed Not Available [facility] 02/26/2023 14:41:37 Influenza, split virus, quadrivalent, preservative 0 completed Not Available [facility] 02/26/2023 14:41:37 Past Encounters Encounter ID Performer Location Encounter Start Date Encounter Closed Date Diagnosis/Indication Diagnosis SNOMED-CT Code Diagnosis ICD10 Code Diagnosis Note [id number] DO [facility] [address] [facility],[place] [address] 09/27/2024 08:51:55 09/27/2024 09:26:26 Osteoporosis 69428203 M81.0 will monitor his calcium and vitamin D levelswill add vitamin K2 on as well Degenerati on of lumbar intervertebral disc 24475086 M51.369 [id number] DO [facility] [address] [facility],[place] [address] 10/24/2024 11:43:29 10/24/2024 13:55:36 Screening for cardiovascular system disease 814618755 Z13.6 he is up to date Screening for malignant neoplasm of colon 926321757 Z12.11 offered and will have him decide Asthma 017147252 J45.30 here and is doing ok overall Essential hypertension 02287884 I10 bp has been doing ok no issuesdisc ussed wgt loss General ex amination of patient 119655566 Z00.01 noted problems with his back and eval by dr ORTIZ Osteoporosis 97785317 M8 1.0 will repeat bone scan in 1 year as he is doing his supplement s firstthis is worrisome for me and feel he should really consider tx Impaired f asting glycemia 977309654 R73.01 stable overall with noted lab work Cervical radiculopathy 51039132 M54.12 Health Concerns Section Related Observation LastModified by Organization Detai ls LastModified Time None Recorded Concern Status LastModified by Organization Details LastModified Time None Recorded Payers Encounter Date Sequence Insurance Name Policy Number Policy Chaney Covered Member ID Chaney Member ID Guarantor Name 10/24/2024 1 [facility]: MEDICARE PPO BLUE (MEDICARE REPLACEMENT PPO) [id number] Ramsey Freeman [id number] Ramsey Freeman Notes Date Note Type Note Provider Name and Address Organization Details Recorded Time 5 text/htm l Care Management - AsthmaReported [...] his legs etc Jose Lima, DO [address] [facility], [place], [address], [facility] 10/24/2024 12:22:21
== END 2024-10-25 10:09 | disposition home or self-care (01) ==
LOC: HO.XRAY 10:08
PROVIDERS: PCP Internal Medicine; Visit Provider Internal Medicine
DX: M54.12 Radiculopathy, cervical region (principal)
CPT/HCPCS: 72040

== ENCOUNTER → 2024-10-25 10:20 | Outpatient (BNV) | payer MEDICARE, SELFPAY | PROVIDERS: PCP Internal Medicine; Visit Provider Radiology Diagnostic Radiology | DX: M50.30 Other cervical disc degeneration, unspecified cervical region (principal) | CPT/HCPCS: 72040 ==

== ENCOUNTER 2025-05-17 07:53 | Outpatient (REF) | payer MEDICARE, SELFPAY ==
--- OUTSIDE RECORDS SUMMARY | 2025-05-17 07:59 | XMS_ITS | Clinical Summary ---
Author Organization [facility] Address [address] [address] Phone Care Team Providers Care Latexer Name Role Phone Jose Spangler DO Primary Care Provider [phone] Allergies Active Allergy Reactions Criticality Noted Date Comments Sulfa (Sulfonamide Antibiotics) Other (See Comments) Medium 01/09/2022 CIS - Rash unknown Medications MULTIVIT-MINERAL S/FERROUS FUM (MULTI VITAMIN ORAL) Active hydroCHLOROthiaz sharon (MICROZIDE) 12.5 mg capsule Orally Once a day Active METOPROLOL SUCCINATE ORAL 1 tablet Once a day Active albuterol 90 mcg/actuation inhaler Inhale 2 puffs into the lungs every 4 (four) hours as needed. 02/14/2022 Active amLODIPine (NORVASC) 5 MG tablet Take 10 mg by mouth daily. 01/17/2022 Active ELIQUIS 5 mg tablet Take 1 tablet by mouth 2 (two) times a day. 11/19/2022 Active folic acid (FOLVITE) 1 MG tablet Take 1 mg by mouth. Active traZODone (DESYREL) 100 MG tablet Take 1 tablet by mouth every morning. 09/15/2022 Active Social History Tobacco Use Types Packs/Day Years Used Date Smoking Tobacco: Never Smokeless Tobacco: Never Tobacco Cessation:Counseling Given: Not Answered Alcohol Use Standard Drinks/Week Comments Yes 5 (1 standard drink = 0.6 oz pur e alcohol) Education Answer Date Recorded Are you interested in more education? Not on katarina e 10/10/2022 Are you concerned about learning? Not on file 10/10/2022 No 10/10/2022 No 10/10/2022 Digital Access Answer Date Recorded No 11/10/2022 No 11/10/2022 Reliable internet access at home? Not on file 11/10/2022 Device with a working camera? Not on file Sex and Gender Information Value Date Recorded Sex Assigned at Not on file Legal Sex Male 9:55 PM EDT Gender Identity Not on file Sexual Orientation Not on file Last Filed Vital Signs Vital Sign Reading Time Taken Comments Blood Pressure 154/90 02/26/2023 2:14 PM EDT Pulse 72 02/26/2023 2:14 PM EDT Temperature - - Respiratory Rate - - Oxygen Saturation 91% 02/26/2023 2:14 PM EDT Inhaled Oxygen Concentration - - Weight 92.5 kg (204 lb) 02/26/2023 2:14 PM EDT Height 172.7 cm (5' 7.99 ) 02/26/2023 2:14 PM ED T Body Mass Index 31.03 02/26/2023 2:14 PM EDT Plan of Treatment Health Maintenance Due Date Last Done Comments CREATININE LEVEL 1955 LIPID PANEL 1955 POTASSIUM LEVEL 1955 DEPRESSION SCREENING 1967 HEPATITIS C SCREENING 1973 SCREENING FOR DIABETES 1990 COLOGUARD 2000 COLONOSCOPY 2000 COLORECTAL CANCER SCREENING 2000 FIT TEST 2000 FOBT 2000 SIGMOIDOSCOPY 2000 VIRTUAL COLONOSCOPY 2000 PNEUMOCOCCAL VACCINES (50+ y ears) (1 of 1 - PCV) 2005 ZOSTER VACCINES (1 of 2) 2005 INFLUENZA VACCINE (#1) 2025 COVID-19 VACCINE (1 - 2024-2 6 season) 2025 Adult Td,Tdap Booster 05/05/2029 05/05/2019 RSV VACCINE (1 - 1-dose 75+ series) 2030 SMOKING STATUS SCREENING (On ce After 26 Yrs) Completed 02/26/2023 HEPATITIS A VACCINES Aged Out No long er eligible based on patient's age to complete this topic HIB VACCINES Aged Out No longer eligi ble based on patient's age to complete this topic MENINGOCOCCAL VACCINES (ACWY) Aged Out No longer eligible based on patient's age to complete this topic MENINGOCOCCAL VACCINES (B) Aged Out N o longer eligible based on patient's age to complete this topic Medical Devices Not on file Insurance MEDICARE PART A & B MEDICARE PART A & B MEDICARE PART A & B MEDICARE PART A & B MEDICARE PART A & B MEDICARE PART A & B Care Teams Latexer Relationship Specialty Start Date End Date Jose Spangler DO PCP - General 06/18/17 Additional Source Comments The information contained in this document represents components of the legal health record. It is not the complete legal health record.[facility]
--- OUTSIDE RECORDS SUMMARY | 2025-05-17 07:59 | XMS_ITS | Clinical Summary ---
Author Organization [facility] [place] [address] Care Team Providers Care Self Pay Specialist Name Role Phone Jose Spangler DO Primary Care Provider [phone] Allergies Active Allergy Reactions Criticality Noted Date Comments Sulfa (Sulfonamide Antibiotics) Medium CIS - Rash Medications omeprazole (PRILOSEC) 20 mg capsule 01/05/2007 Active Social History Tobacco Use Types Packs/Day Years Used Date Smoking Tobacco: Never Assessed Sex and Gender Information Value Date Recorded Sex Assigned at Not on file Legal Sex Male 7:15 AM EST Gender Identity Not on file Sexual Orientation Not on file Plan of Treatment Health Maintenance Due Date Last Done Comments CT Colonography 1955 Colonoscopy 1955 Colorectal Cancer Screening 1955 FIT DNA 1955 FIT 1955 Sigmoidoscopy (10 year) with FIT yearly 1955 Sigmoidoscopy 1955 Lipid Screening 1973 Tetanus/Diphtheria/Pertussis Vaccines (1 - Tdap) 08/09 Pneumoccocal Vaccine: 50+ (1 of 1 - PCV) 2005 Zoster vaccine (1 of 2) 2005 Advance Directive 2010 Covid-19 Vaccine (1 - 2024- season) 2025 Influenza (Flu) vaccine (1 o f 1 - Influenza standard series) 02/13/2025 Hepatitis C Screening Completed 03/13/2017 Procedures Procedure Name Priority Date/Time Associated Diagnosis Comments HEPATITIS C ANTIBODY Routine 03/13/2017 1:22 PM EDT from Last 3 Months or Most Recently Relevant to Health Maintenance Results * (ABNORMAL) Hepatitis C Antibody (03/13/2017 1:22 PM EDT) Hepatitis C Antibody <0.1(Exter nal Lab) 0.0 - 0.9 MANISHA TEIXEIRA CONVERSION 03/13/2017 1:22 PM EDT us Results Provider Apd Conversion MD CHEMISTRY ORD ERABLES Final Result MANISHA RODRIGUEZ CONVERSION [address] [place] [place] [address] from Last 3 Months or Most Recently Relevant to Health Maintenance Care Teams Self Pay Specialist Relationship Specialty Start Date End Date Jose Spangler DO [address] [place] [address] PCP - General 05/07/10
[2025-05-17 10:34] LABS: Hematocrit 41.5 % (42.0-52.0); Hemoglobin 13.8 g/dl (14.0-18.0); Mean Corpuscular HGB Conc 33.3 g/dl (31.0-36.0); Mean Corpuscular Hemoglobin 29.8 pg (27.0-33.0); Mean Corpuscular Volume 89.6 fL (80.0-98.0); NRBC Abs Auto 0.000 X10*3/uL (0.0-0.012); NRBC Pct Auto 0.0 /100WBC (0.0-0.2); Platelet Count 213 X10*3/uL (160-400); Red Blood Count 4.63 X10*6/uL (4.60-5.80); White Blood Count 5.0 X10*3/uL (4.8-10.8)
[2025-05-17 11:07] LABS: Alanine Aminotransferase 16 U/L (0-40); Albumin Level 4.1 g/dL (3.5-5.0); Alkaline Phosphatase 72 U/L (39-117); Anion Gap 9 (12-20); Aspartate Amino Transferase 21 U/L (5-37); Blood Urea Nitrogen 19 mg/dL (9-16); Calcium 8.9 mg/dL (8.4-10.2); Carbon Dioxide 30 mmol/L (22-29); Chloride 108 mmol/L (96-108); Cholesterol 162 mg/dL (<200); Estimated Glomerular Filt Rate > 60; HDL Cholesterol 54 mg/dL (>40); Potassium 4.5 mmol/L (3.3-5.1); Sodium 142 mmol/L (135-145); Total Protein 6.2 g/dL (6.5-8.0); Triglycerides 73 mg/dL (<150)
[2025-05-17 11:09] LABS: Erythrocyte Sedimentation Rate 6 MM/HR (0-15); Thyroid Stimulating Hormone 2.34 uIU/mL (0.32-4.0)
[2025-05-17 11:32] LABS: Prostate Specific Antigen 4.12 ng/mL (<0.05-4.0); Vitamin B12 584 pg/mL (200-900)
== END 2025-05-17 07:54 | disposition home or self-care (01) ==
LOC: HO.HMGCLDS 07:53
PROVIDERS: PCP Internal Medicine; Visit Provider Internal Medicine
DX: I10 Essential (primary) hypertension (principal); R53.83 Other fatigue; Z12.5 Encounter for screening for malignant neoplasm of prostate
CPT/HCPCS: 36415; 80053; 80061; 82607; 84153; 84403; 84443; 85027; 85652; 86140